=== PATIENT | female | born 1935 | race Caucasian/White ===

== ENCOUNTER 2023-04-25 08:34 | Day surgery (SDC) | payer MEDICARE, SELFPAY ==
[2023-04-25] MEDS: LIDOCAINE 2% JELLY 10 ML UR (10:18)
--- NOTE | 2023-04-25 10:40 | P.URON_ITS ---
Urology Surgery Operative Note Operative Note Procedure Date: 04/25/23 Time Out Performed: yes Pre-op Diagnosis: left UPJ obstruction and hydronephrosis; recurrent urinary infections and pain from stent Post-op Diagnosis: same as pre-op Procedures performed: #1. Cystoscopy. #2. Left stent removal. 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 It was changed in September 2022. She has been having recurrent urinary infections and pain attributable to the stent. She is desirous for stent removal. She has signed an informed consent for cystoscopy and left stent removal. Detailed description of Procedure: the patient was kept on her [facility] bed in the supine position and brought to the endoscopy suite. Her legs were frog legged and her perineum and genitalia were sterilely prepped and draped in the usual fashion. Timeout was done by all parties in the room. We all agreed upon the patient's identification and the planned procedures for this patient. A flexible cystoscope was passed per urethra and into the bladder. The urine was cloudy and visibility was poor. Once the stent was identified a flexible grasping forceps was passed. The non- encrusted stent was grasped with the grasper. The scope and stent were then removed without difficulty. She was then discharged to home. We will check a renal ultrasound in 2 months.
== END 2023-04-25 11:05 | disposition home or self-care (01) ==
PROVIDERS: PCP Family Medicine; Visit Provider Urology
PROC: (CPT 52310; principal; 2023-04-25 09:10)
DX: Z46.6 Encounter for fitting and adjustment of urinary device (principal); Z87.440 Personal history of urinary (tract) infections; Z87.442 Personal history of urinary calculi; I48.91 Unspecified atrial fibrillation; I10 Essential (primary) hypertension; K21.9 Gastro-esophageal reflux disease without esophagitis; E11.9 Type 2 diabetes mellitus without complications; R31.0 Gross hematuria; Z90.710 Acquired absence of both cervix and uterus; R30.0 Dysuria; Z79.4 Long term (current) use of insulin; Z79.899 Other long term (current) drug therapy; N39.41 Urge incontinence; Q62.11 Congenital occlusion of ureteropelvic junction; N13.30 Unspecified hydronephrosis
CPT/HCPCS: 52310

== ENCOUNTER 2023-06-11 08:00 | Outpatient (OUT) | payer MEDICARE, SELFPAY ==
--- NOTE | 2023-06-11 08:03 | US_ITS ---
The [address] [address] Patient Name: PANCHITO MALIK MRN: [id number] date: 1935 Sex: F Assigned Patient Location: US Current Patient Location: US Accession/Order Number: [id number] Exam Date: 06/11/2023 08:08 Report Date: 06/11/2023 13:21 At the request of: FELICITAS MOORE Procedure: US renal bladder EXAM: US renal bladder HISTORY: Hydronephrosis, Urinary Incontinence COMPARISON: None. TECHNIQUE: Ultrasound kidneys FINDINGS: The right kidney measures 8.8 x 4.8 x 5.7 cm contains multiple calculi, largest measuring up to 0.6 cm. There is no hydronephrosis of the right kidney. The left kidney measures 10.4 x 4.5 x 4.3 cm and contains multiple calculi, largest measuring up to 0.6 cm. There is mild left hydronephrosis. The urinary bladder appears normal. Prevoid volume was 2024.6 cc. Post void volume was 51.4 cc. US/US renal bladder IMPRESSION: Bilateral nephrolithiasis. Mild left hydronephrosis. Urinary retention. Electronically authenticated by: HARPER MARROQUIN Date: 06/11/2023 13:21
== END 2023-06-11 08:01 | disposition home or self-care (01) ==
LOC: US 08:00
PROVIDERS: PCP Family Medicine; Visit Provider Urology
DX: N13.30 Unspecified hydronephrosis (principal); R32 Unspecified urinary incontinence
CPT/HCPCS: 76770

== ENCOUNTER 2023-06-28 10:09 | Outpatient (OUT) | payer MEDICARE, SELFPAY ==
--- NOTE | 2023-06-28 | XR_ITS ---
The [address] [address] Patient Name: PANCHITO MALIK MRN: [id number] date: 1935 Sex: F Assigned Patient Location: [facility] Current Patient Location: [facility] Accession/Order Number: [id number] Exam Date: 06/28/2023 10:25 Report Date: 06/28/2023 11:12 At the request of: FELICITAS MOORE Procedure: XR abdomen 1V EXAM: XR abdomen 1V HISTORY: Kidney stone COMPARISON: None. TECHNIQUE: AP view of the abdomen. FINDINGS: Nonobstructive bowel gas pattern is noted. There is no suspicious calcification. The osseous structures are intact. XR/XR abdomen 1V IMPRESSION: Nonobstructive bowel gas pattern. Constipation. No suspicious renal calcification. Electronically authenticated by: HARPER MARROQUIN Date: 06/28/2023 11:12
== END 2023-06-28 10:10 | disposition home or self-care (01) ==
LOC: RAD 10:09
PROVIDERS: PCP Family Medicine; Visit Provider Urology
DX: N20.0 Calculus of kidney (principal); K59.00 Constipation, unspecified
CPT/HCPCS: 74018

== ENCOUNTER 2024-06-29 10:18 | Outpatient (OUT) | payer MEDICARE, SELFPAY ==
--- NOTE | 2024-06-29 10:21 | US_ITS ---
The [address] [address] Patient Name: PANCHITO MALIK MRN: [id number] date: 1935 Sex: F Assigned Patient Location: US Current Patient Location: Accession/Order Number: [id number] Exam Date: 06/29/2024 10:30 Report Date: 06/30/2024 06:33 At the request of: FELICITAS MOORE Procedure: US renal bladder EXAMINATION: US renal bladder HISTORY: Stenosis Ureteropelvic Junction, Hydronephrosis Of Left COMPARISON: Ultrasound kidneys and bladder 06/11/2023, CT abdomen pelvis 05/19/2022 TECHNIQUE: Ultrasound examination was performed of the kidneys and urinary bladder. FINDINGS: RIGHT KIDNEY: Mild cortical thinning; likely age related. Several nonobstructing stones, largest is 14 x 5 x 3 mm. Normal parenchymal echogenicity. Color Doppler demonstrates blood flow within the kidney. Kidney: 8.8 x 5.1 x 6.1 cm LEFT KIDNEY: Mild cortical thinning; likely age related. Mid body 2.6 cm mass versus developmental dromedary hump. Normal parenchymal echogenicity. Color Doppler demonstrates blood flow within the kidney. Kidney: 10.5 x 4.0 x 3.7 cm. BLADDER: No visible wall thickening, mass, or calculi. Post void residual: Patient unable to void URETERAL JETS: Not seen on right. Present on left. US/US renal bladder IMPRESSION: 1. Nonobstructing right nephrolithiasis. 2. 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 This was not appreciated on prior ultrasound and CT imaging which raises concern for a mass. CT abdomen without and with IV contrast is recommended for further evaluation. 3. Patient was unable to 4 in for evaluation of postvoid bladder volume. The right ureteral jet was also not seen, but there is no right hydronephrosis. Electronically authenticated by: SHIRLEY GOMEZ Date: 06/30/2024 06:33
--- NOTE | 2024-06-29 10:21 | XR_ITS ---
The [address] [address] Patient Name: PANCHITO MALIK MRN: [id number] date: 1935 Sex: F Assigned Patient Location: US Current Patient Location: US Accession/Order Number: [id number] Exam Date: 06/29/2024 10:35 Report Date: 07/01/2024 15:21 At the request of: FELICITAS MOORE Procedure: XR abdomen 1V EXAMINATION: XR abdomen 1V HISTORY: Stenosis Ureteropelvic Junction, Hydronephrosis Of Left Kidn COMPARISON: 06/28/2023 FINDINGS: KIDNEY/URETER - RIGHT: No visible renal or ureteral calcifications. KIDNEY/URETER - LEFT: No visible renal or ureteral calcifications. PELVIS: No visible ureteral calcifications. Any visible calcifications favor phleboliths. BOWEL: No abnormal dilation or deviation., Moderate stool BONES: No acute abnormality. Rotatory levoscoliosis with degenerative changes OTHER: Negative. No abnormal gaseous collections. XR/XR abdomen 1V IMPRESSION: Nonobstructive bowel gas pattern, moderate stool Electronically authenticated by: JOSE CRUZ HANSON Date: 07/01/2024 15:21
--- OUTSIDE RECORDS SUMMARY | 2024-06-29 10:33 | XMS_ITS | CCD ---
Author Organization [facility] Care Team Providers Care Circus Hand Name Role Phone PHYSICIAN, DEFAULT Unavailable Unavailable PHYSICIAN, DEFAULT Unavailable Unavailable HEMEYER, EARLINE Unavailable Unavailable PROVIDER, UNKNOWN Attending Unavailable PROVIDER, UNKNOWN Admitting Unavailable Trisha Osorio Primary Care Physician JO ., DR RICO Attending Unavailable HOY ., DR RICO Admitting Unavailable HOY ., DR RICO Primary Care Unavailable HOY ., DR RICO Consulting Unavailable CASEY ., GONZALES Consulting Unavailable ALONZO, АНДРЕЙ Consulting Unavailable ROLAN HDEZ Consulting Unavailable RASHEIDI, AKASH Consulting Unavailable HOY ., DR RICO Consulting Unavailable HOY ., DR RICO Attending Unavailable HOY ., DR RICO Admitting Unavailable HOY ., DR RICO Primary Care Unavailable HOY ., DR RICO Consulting Unavailable HOY ., DR RICO Attending Unavailable HOY ., DR RICO Admitting Unavailable HOY ., DR RICO Primary Care Unavailable MCGEE ., DR POLK Consulting Unavailable TIMMIS, DR POSEY Consulting Unavailable ZIEBER, DR SHIRLEY Cummings Consulting Unavailable HOY ., DR RICO Attending Unavailable HOY ., DR RICO Admitting Unavailable HOY ., DR RICO Primary Care Unavailable MCGEE ., DR POLK Attending Unavailable MCGEE ., DR POLK Admitting Unavailable MCGEE ., DR POLK Consulting Unavailable HOY ., DR RICO Primary Care Unavailable TIMJHONATHAN, DR POSEY Consulting Unavailable HEMEYER ., DR PATTEN Primary Care Unavailable YATES ., DR SALIMA Sky Consulting Unavailable YATES ., DR SALIMA Sky Attending Unavailable YATES ., DR SALIMA Sky Admitting Unavailable ZIEBER, DR SHIRLEY Cummings Consulting Unavailable GRECHNY .ANJU Consulting Unavailbridget MCKEON ., DR COOMBS Consulting Unavailable NILL ., DR GLYNN Consulting Unavailable HOY ., DR RICO Attending Unavailable HOY ., DR RICO Admitting Unavailable RAMOS, DR HARPER Cummings Consulting Unavailable HEMEYER ., DR PATTEN Primary Care Unavailable JO ., DR RICO Consulting Unavailable TERESA ., DR POLK Consulting Unavailable ZIEBGIOVANI, DR HSIRLEY Cummings Consulting Unavailable HAY ., DR COOMBS Consulting Unavailable MORALESJOHNSON RENDON Consulting Unavailable NIRU PHAM Consulting Unavailable TERESA ., DR POLK Attending Unavailable TERESA ., DR POLK Admitting Unavailable MCGEE ., DR POLK Consulting Unavailable JO ., DR RICO Primary Care Unavailable SHAUN II, TRESA Consulting Unavailable KOMA, YAZMIN Consulting Unavailable Rakan MCGEE Attending Unavailable Allergies Allergy Classification Reported Allergen(s) Allergy Type Date of Onset Reaction(s) Facility (2 sources) amiodarone; Translations: [amiodarone] Drug Allergy 2 [facility] (3 sources) ciprofloxacin; Translations: [Cipro] Drug Allergy 2 [facility] (5 sources) Amiodarone; Translations: [amiodarone] Drug Allergy Nausea (finding) [facility] (5 sources) Ciprofloxacin; Translations: [ciprofloxacin] Drug Allergy Nausea (finding) [facility] (1 source) Amiodarone Drug Allergy 1 [facility] Medications Current Medications Medication Drug Class(es) Dates Sig (Normalized) Sig (Original) acetaminophen 325 mg chewable tablet (5 sources) Start: 09-10-2022 take 1 mg by mouth every six hours acetaminophen 325 mg oral tablet, chewable mg tab(s), Oral, q6hr, Refills(s) 0 Start Date: 09/10/22 Status: Ordered cefdinir 300 mg oral capsule (2 sources) Cephalosporin Antibacterial Start: 06-21-2023 cefdinir 300 mg Cap Refills(s) 0 Start Date: 06/21/23 Status: Ordered dabigatran etexilate 150 mg oral capsule (5 sources) Start: 09-10-2022 Pradaxa 150 mg cap Oral, Refills(s) 0 Start Date: 09/10/22 Status: Ordered dilTIAZem hydrochloride 60 mg oral tablet (5 sources) Calcium Channel Herb Start: 09-10-2022 diltiazem 60 mg Tab Refills(s) 0 Start Date: 09/10/22 Status: Ordered FREESTYLE GUY 2/SENSOR/FLASH GLUC OSE MONITORING SYSTEM MISC (2 sources) Start: 06-21-2023 FREESTYLE GUY 2/SENSOR/FLASH GLUC OSE MONITORING SYSTEM MISC FREESTYLE GUY 2/SENSOR/FLASH GLUC OSE MONITORING SYSTEM MISC Start Date: 06/21/23 Status: Ordered furosemide 20 mg oral tablet (5 sources) Loop Diuretic Start: 09-10-2022 furosemide 20 mg Tab Refills(s) 0 Start Date: 09/10/22 Status: Ordered 3 ml insulin glargine 100 unt/ml pen injector (3 sources) Insulin Analog Start: 09-10-2022 Lantus Solostar Pen 100 units/mL subcutaneous solution Refills(s) 0 Start Date: 09/10/22 Status: Ordered insulin lispro 100 unt/ml injectable solution (5 sources) Insulin Analog Start: 09-10-2022 HumaLOG 100 units/mL injectable solution 5 unit(s), SubCutaneous, TIDAC, # 10 mL, Refills(s) 0 Start Date: 09/10/22 Status: Ordered linagliptin 5 mg oral tablet (5 sources) Dipeptidyl Peptidase 4 Inhibitor Start: 09-10-2022 take 1 tablet by mouth once daily Tradjenta 5 mg oral tablet 5 mg = 1 tab(s), Oral, Daily, # 30 tab(s), Refills(s) 0 Start Date: 09/10/22 Status: Ordered Milk of Magnesia (2 sources) Start: 06-21-2023 Milk of Magnesia mg, Oral, Refills(s) 0 Start Date: 06/21/23 Status: Ordered nitroglycerin 0.4 mg sublingual tablet (5 sources) Nitrate Vasodilator Start: 09-10-2022 nitroglycerin 0.4 mg sublingual Tab 0.4 mg = 1 tab(s), SubLingual, q5min, PRN for chest pain, # 100 tab(s), Refills(s) 0 Start Date: 09/10/22 Status: Ordered omeprazole 40 mg delayed release oral capsule (4 sources) Proton Pump Inhibitor Start: 09-10-2022 omeprazole 40 mg Cap-DR Refills(s) 0 Start Date: 09/10/22 Status: Ordered ondansetron 4 mg disintegrating oral tablet (2 sources) Serotonin-3 Receptor Antagonist Start: 06-21-2023 take 1 mg by mouth three times daily ondansetron 4 mg Dis Tab mg tab(s), Oral, TID, Refills(s) 0 Start Date: 06/21/23 Status: Ordered pantoprazole 40 mg delayed release oral tablet (1 source) Proton Pump Inhibitor Start: 06-26-[address] Tab 40 mg = 1 tab(s), Refills(s) 0 Start Date: 06/26/24 Status: Ordered Miralax (2 sources) Osmotic Laxative Start: 06-21-2023 take 1 g by mouth once daily MiraLax gm, Oral, Daily, Refill(s) 0 Start Date: 06/21/23 Status: Ordered spironolactone 25 mg oral tablet (3 sources) Aldosterone Antagonist Start: 09-10-2022 spironolactone 25 mg Tab Refills(s) 0 Start Date: 09/10/22 Status: Ordered tiZANidine 2 mg oral tablet (2 sources) Central alpha-2 Adrenergic Agonist Start: 06-21-2023 take 1 tablet by mouth every eight hours tiZANidine 2 mg Tab See Instructions, 1 tab(s) Oral q8hr, Refills(s) 0 Start Date: 06/21/23 Status: Ordered traMADol hydrochloride 50 mg oral tablet (2 sources) Opioid Agonist Start: 06-21-2023 take 1 mg by mouth every six hours traMADOL 50 mg Tab mg tab(s), Oral, q6hr, Refills(s) 0 Start Date: 06/21/23 Status: Ordered Completed/Discontinued Medications Medication Drug Class(es) Dates Sig (Normalized) Sig (Original) dextromethorphan hydrobromide 2 mg/ml / guaiFENesin 20 mg/ml oral solution (2 sources) Uncompetitive G-fqdfuf-M-aspartat e Receptor Antagonist, Sigma-1 Agonist Start: 06-21-2023 take 10 doses by mouth every four hours dextromethorphan- guaifenesin 20 mg-200 mg/10 mL oral liquid 10 mL, Oral, q4hr for cough, 10 EA, Refill(s) 0 Start Date: 06/21/23 Status: Ordered potassium bicarbonate 25 meq effervescent oral tablet (1 source) Start: 10-14-2023 take 1 tablet by mouth once daily Klor-Con/EF 25 mEq oral tablet, effervescent 25 mEq = 1 tab(s), Oral, Daily, # 30 tab(s), Refills(s) 1, Pharmacy: [id number], 153, cm, 06/21/23 11:04:00 EST, Height/Length Dosing, 64.2, kg, 06/21/23 11:04:00 EST, Weight Dosing Start Date: 10/14/23 Status: Ordered Problems Active Problems Problem Classification Problem Date Documented Date Episodic/Chronic Abdominal hernia (1 source) Diaphragmatic hernia without obstruction or gangrene; Translations: [DIAPH HERNIA W/O OBST/GANGRENE] Onset: 3 Episodic Abdominal pain (4 sources) Unspecified abdominal pain; Translations: [UNSPECIFIED ABDOMINAL PAIN] Onset: 2 Episodic Acute and unspecified renal failure (2 sources) Acute kidney failure, unspecified; Translations: [ACUTE KIDNEY FAILURE UNSPECIFIED] Onset: 2 Episodic Allergic reactions (2 sources) Allergy status to other antibiotic agents status; Translations: [Allergy status to other drugs, medicaments and biological substances status] Onset: 3 Episodic Bacterial infection; unspecified site (1 source) Personal history of Methicillin resistant Staphylococcus aureus infection; Translations: [PERS HX METHICILLIN RSIST STAPH INF] Onset: 3 Episodic Calculus of urinary tract (11 sources) Kidney stone; Translations: [Calculus of kidney] Onset: 2 Episodic Cardiac dysrhythmias (6 sources) Atrial fibrillation; Translations: [Unspecified atrial fibrillation] Onset: 2 09-10-2022 Chronic Cardiac dysrhythmias (1 source) Bradycardia, unspecified; Translations: [BRADYCARDIA UNSPECIFIED] Onset: 3 Episodic Congestive heart failure; nonhypertensive (1 source) Heart failure, unspecified; Translations: [HEART FAILURE UNSPECIFIED] Onset: 3 Chronic Coronary atherosclerosis and other heart disease (1 source) Atherosclerotic heart disease of [place] coronary artery without angina pectoris; Translations: [ASHD ZUNI CA W/O ANGINA PECTORIS] Onset: 2 Chronic Deficiency and other anemia (1 source) Iron deficiency anemia, unspecified; Translations: [IRON DEFICIENCY ANEMIA UNSPECIFIED] Onset: 3 Episodic Diabetes mellitus with complications (5 sources) Type 2 diabetes mellitus with diabetic chronic kidney disease; Translations: [Type 2 diabetes mellitus with hyperglycemia] Onset: 3 Chronic Diabetes mellitus without complication (6 sources) Type 2 diabetes mellitus; Translations: [Type 2 diabetes mellitus without complications] Onset: 2 09-10-2022 Chronic Diseases of white blood cells (1 source) Elevated white blood cell count, unspecified; Translations: [ELEVATED WHITE BLOOD CELL COUNT UNS] Onset: 2 Chronic E Codes: Adverse effects of medical drugs (2 sources) Adverse effect of mineralocorticoids and their antagonists, initial encounter; Translations: [Adverse effect of other nonsteroidal anti-inflammatory drugs [NSAID], initial encounter] Onset: 3 Episodic Esophageal disorders (7 sources) Gastroesophageal reflux disease; Translations: [Gastro-esophageal reflux disease without esophagitis] Onset: 2 09-10-2022 Chronic Essential hypertension (6 sources) Essential hypertension; Translations: [Essential (primary) hypertension] Onset: 2 09-10-2022 Chronic Fluid and electrolyte disorders (4 sources) Hyperkalemia; Translations: [Hypo-osmolality and hyponatremia] Onset: 3 Episodic Genitourinary congenital anomalies (5 sources) Congenital pelviureteric junction obstruction; 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] Onset: 3 Chronic Genitourinary symptoms and ill-defined conditions (7 sources) Urge incontinence; Translations: [Urge incontinence of urine] Onset: 3 Chronic Genitourinary symptoms and ill-defined conditions (9 sources) Blood in urine; Translations: [Gross hematuria] Onset: 2 Episodic Mood disorders (1 source) Mood disorders; Translations: [DEPRESSION UNSPECIFIED] Onset: 3 Osteoarthritis (1 source) Unspecified osteoarthritis, unspecified site; Translations: [UNSPECIFIED OSTEOARTHRITIS UNS SITE] Onset: 3 Chronic Other aftercare (1 source) Encounter for palliative care; Translations: [ENCOUNTER FOR PALLIATIVE CARE] Onset: 3 Episodic Other aftercare (1 source) Other [facility] (current) drug therapy; Translations: [OTH PRISON CURRENT DRUG THERAPY] Onset: 3 Episodic Other aftercare (1 source) [facility] (current) use of insulin; Translations: [TRANSFORMER MOLDER CURRENT USE OF INSULIN] Onset: 3 Episodic Other aftercare (1 source) [facility] (current) use of oral hypoglycemic drugs; Translations: [PRISON USE ORAL HYPOGLYCEMIC DX] Onset: 3 Episodic Other aftercare (1 source) moth exterminator (current) use of non-steroidal anti-inflammatories (NSAID); Translations: [PRISON USE NSAID] Onset: 3 Episodic Other aftercare (1 source) moth exterminator (current) use of anticoagulants; Translations: [TRANSFORMER MOLDER CURRNT USE ANTICOAGULANTS] Onset: 3 Episodic Other connective tissue disease (1 source) Synovial cyst of popliteal space [Mcnamara], left knee; Translations: [SYNOVIAL CYST POP SPACE LEFT KNEE] Onset: 3 Episodic Other diseases of kidney and ureters (9 sources) Hydronephrosis; Translations: [Unspecified hydronephrosis] Onset: 3 Episodic Other diseases of kidney and ureters (5 sources) Stenosis of ureter 09-10-2022 Episodic Other diseases of kidney and ureters (5 sources) Unspecified hydronephrosis; Translations: [UNSPECIFIED HYDRONEPHROSIS] Onset: 3 Episodic Other injuries and conditions due to external causes (1 source) Personal history of (healed) traumatic fracture; Translations: [PERSONAL HX HEALED TRAUMATIC FX] Onset: 3 Episodic Other nutritional; endocrine; and metabolic disorders (1 source) Hypomagnesemia; Translations: [HYPOMAGNESEMIA] Onset: 3 Chronic Other screening for suspected conditions (not mental disorders or infectious disease) (1 source) Abnormal coagulation profile; Translations: [ABNORMAL COAGULATION PROFILE] Onset: 3 Episodic Other skin disorders (1 source) Localized swelling, mass and lump, left lower limb; Translations: [LOC SWELL MASS LUMP LT LOWER LIMB] Onset: 3 Episodic Residual codes; unclassified (1 source) Localized edema; Translations: [LOCALIZED EDEMA] Onset: 3 Episodic Residual codes; unclassified (1 source) Do not resuscitate; Translations: [DO NOT RESUSCITATE] Onset: 3 Episodic Residual codes; unclassified (1 source) Acquired absence of other specified parts of digestive tract; Translations: [ACQ ABSENCE OTH PART DIGESTV TRACT] Onset: 3 Episodic Residual codes; unclassified (1 source) Acquired absence of both cervix and uterus; Translations: [ACQUIRED ABSENCE BOTH CERVIX AND UTERUS] Onset: 3 Episodic Residual codes; unclassified (1 source) Family history of diabetes mellitus; Translations: [FAMILY HISTORY OF DIABETES MELLITUS] Onset: 3 Episodic Residual codes; unclassified (1 source) Family history of ischemic heart disease and other diseases of the circulatory system; Translations: [FAM HX ISCHEMIC HRT DZ OTH DZ CIRC] Onset: 3 Episodic Residual codes; unclassified (1 source) Family history of malignant neoplasm of ovary; Translations: [FAM HX MALIGNANT NEOPLASM OVARY] Onset: 3 Episodic Residual codes; unclassified (1 source) Family history of malignant neoplasm of kidney; Translations: [FAM HX MALIGNANT NEOPLASM KIDNEY] Onset: 3 Episodic Residual codes; unclassified (1 source) Edema, unspecified; Translations: [EDEMA UNSPECIFIED] Onset: 3 Episodic Unclassified (1 source) CHRN KIDNEY DISEASE STG 3 UNSP; Translations: [CHRN KIDNEY DISEASE STG 3 UNSP] Onset: 3 Unclassified (1 source) LOW BACK PAIN, UNSPECIFIED; Translations: [LOW BACK PAIN, UNSPECIFIED] Onset: 3 Unclassified (1 source) CONTACT W/AND (SUSP) EXPOS COVID-19; Translations: [CONTACT W/AND (SUSP) EXPOS COVID-19] Onset: 2 Urinary tract infections (9 sources) Urinary tract infection, site not specified; Translations: [Urinary tract infectious disease] Onset: 3 Episodic Past or Other Problems Problem Classification Problem Date Documented Date Episodic/Chronic Nausea and vomiting (4 sources) Nausea with vomiting, unspecified; Translations: [NAUSEA WITH VOMITING UNSPECIFIED] Onset: 03-13-2022 Episodic Other diseases of kidney and ureters (1 source) Hydronephrosis with ureteropelvic junction obstruction; Translations: [HYDRONEPHR URETEROPELVIC JUNCT OBST] Onset: 05-23-2022 Episodic Results Test Name Value Interpretation Reference Range Harpreet serrano Ambulatory Visit Summaryon 1 08-26-2023 Ambulatory Visit Summary Ambulatory Visit Summary PANCHITO MALIK :1935 Visit Date:06/26/2024 Ambulatory Visit Instructions Your Diagnosis Kidney stone Stenosis of ureteropelvic junction (UPJ) Hydronephrosis of left kidney Urge incontinence Recurrent UTI Tests Performed US Bladder -- Results Pending -- US Renal -- Results Pending -- Please visit your patient portal for your results or contact your primary care physician. Your Care Team Attending Physician - TERESA BENDER, Rakan Cummings Primary Care Physician - Jo BENDER, Trisha This Is Your Medications List potassium bicarbonate (Klor-Con/EF 25 mEq oral tablet, effervescent) Contact prescribing physician if questions or concerns Misc Prescription (MakeGamesWithUsSTYLE GUY 2/SENSOR/FLASH GLUC OSE MONITORING SYSTEM MISC) acetaminophen (acetaminophen 325 mg oral tablet, chewable) cefdinir (cefdinir 300 mg Cap) dabigatran (Pradaxa 150 mg cap) dextromethorphan-guaif enesin (dextromethorphan-guai fenesin 20 mg-200 mg/10 mL oral liquid) diltiazem (diltiazem 60 mg Tab) furosemide (furosemide 20 mg Tab) insulin lispro (HumaLOG 100 units/mL injectable solution) linagliptin (Tradjenta 5 mg oral tablet) magnesium hydroxide (Milk of Magnesia) nitroglycerin (nitroglycerin 0.4 mg sublingual Tab) ondansetron (ondansetron 4 mg Dis Tab) pantoprazole (Pantoprazole [address] Tab) polyethylene glycol 3350 (MiraLax) tizanidine (tiZANidine 2 mg Tab) tramadol (traMADOL 50 mg Tab) Procedures Performed Cystoscopic insertion of ureteric stent (05/19/2022), Cardiac ablation system, Hysterectomy, Tubal ligation. Discharge Vitals Temperature (Temporal Artery) 37 ???C Heart Rate (Peripheral) 61 Respiratory Rate 16 Blood Pressure 122/64 Height 153 cm Height 60 in Weight 63.1 kg Weight 139.112 lb BMI 26.96 What to do next You Need to Schedule the Following Appointments Follow Up with TERESA BENDER, MICHAEL Gonzalez When: Comments: Pending US Results. Where: [facility] [address], [place] [address]- Medications What How Much When Instructions Unchanged potassium bicarbonate (Klor-Con/ EF 25 mEq oral tablet, effervescent) 1 Tablets By Mouth Every day Unchanged acetaminophen (acetaminophen 325 mg oral tablet, chewable) By Mouth Every 6 hours Contact prescribing physician if questions or concerns Unchanged cefdinir (cefdinir 300 mg Cap) Contact prescribing physician if questions or concerns Unchanged dabigatran (Pradaxa 150 mg cap) By Mouth Contact prescribing physician if questions or concerns Unchanged dextromethorphan-guaif enesin (dextromethorphan-guai fenesin 20 mg-200 mg/ 10 mL oral liquid) 10 Milliliter By Mouth Every 4 hours as needed for for cough Contact prescribing physician if questions or concerns Unchanged diltiazem (diltiazem 60 mg Tab) Contact prescribing physician if questions or concerns Unchanged furosemide (furosemide 20 mg Tab) Contact prescribing physician if questions or concerns Unchanged insulin lispro (HumaLOG 100 units/ mL injectable solution) 5 Units Subcutaneous Before meals Contact prescribing physician if questions or concerns Unchanged linagliptin (Tradjenta 5 mg oral tablet) 1 Tablets By Mouth Every day Contact prescribing physician if questions or concerns Unchanged magnesium hydroxide (Milk of Magnesia) By Mouth Contact prescribing physician if questions or concerns Unchanged Misc Prescription (FREESTYLE GUY 2/ SENSOR/ FLASH GLUC OSE MONITORING SYSTEM MISC) 0 Contact prescribing physician if questions or concerns Unchanged nitroglycerin (nitroglycerin 0.4 mg sublingual Tab) 1 Tablets Sublingual Every 5 minutes as needed for for chest pain Contact prescribing physician if questions or concerns Unchanged ondansetron (ondansetron 4 mg Dis Tab) By Mouth 3 times a day Contact prescribing physician if questions or concerns Unchanged pantoprazole (Pantoprazole [address] Tab) 1 Tablets Contact prescribing physician if questions or concerns Unchanged polyethylene glycol 3350 (MiraLax) By Mouth Every day Contact prescribing physician if questions or concerns Unchanged tizanidine (tiZANidine 2 mg Tab) See instructions 1 tab(s) Oral q8hr Contact prescribing physician if questions or concerns Unchanged tramadol (traMADOL 50 mg Tab) By Mouth Every 6 hours Contact prescribing physician if questions or concerns Allergies amiodarone (Nausea) Cipro (Nausea) Problems Ongoing - Any problem that you are currently receiving treatment for. Atrial fibrillation Essential hypertension Gastro-esophageal reflux Gross hematuria Hydronephrosis of left kidney Kidney stone Recurrent UTI Stenosis of ureteropelvic junction (UPJ) Type 2 diabetes mellitus Urge incontinence Patient Survey You may receive a survey via text or e-mail asking about your office visit. Please share your experience with us by completing your survey. We appreciate your feedback and thank you for choosing us for y (more content not included)... [facility] Urology Office/Clinic Noteon 06-26-2024 Urology Office/Clinic Note Urology Office/Clinic Note Chief Complaint kidney stone HPI Staff 1 year f/u with KUB Dx: kidney stone, stenosis of UPJ, hydronephrosis of left kidney, urge incontinence and recurrent UTI. Pt was recently treated for UTI by Dr. Osorio. Pt states that for a while now she has been having pain off and on the left side lower quadrant Dysuria: pt states very little burning but has had it since she was treated for UTI recently Incomplete bladder emptying: pt does voiding maneuvers such as bending forward and pushing to empty Hematuria: pt states once in a while she notices a small amount of blood on the toilet paper and in her pad Frequency: pt states that she voids at the least 1x an hour and she states that has been her normal for a very long time Urgency: yes Nocturia: 2-3x Stream: states that since treatment for her UTI she has noticed improvement with her stream Leaking: yes Post void dripping: denies Wearing pads/ Depends: wears pads and has to change 3-6x Urge incontinence: yes Stress incontinence: denies Incontinence without Sensory Awareness: denies Abdominal pain: lower left quadrant off and on Flank pain: denies Sexual complaints: denies History of Present Illness Tests reviewed: reviewed UA and [facility]. I have reviewed the previous health record information and history for this patient from . I have reviewed and verified the staff HPI to be accurate for this encounter. There have been no associated fever, chills, flank pain, or blood in the urine. Denies any urinary infections since last encounter. Review of Systems PHQ Score Initial Depression Screen Score: 2 SCORE ROS - Provider Constitutional: denies weight loss, denies hot flashes. Eyes: denies eye problems. Gastrointestinal: denies nausea, denies vomiting. Cardiovascular: denies chest pain or angina. Integumentary: no dryness Musculoskeletal: denies musculoskeletal symptoms. ENMT: denies otolaryngeal symptoms. Respiratory: no shortness of breath. Heme/Lymph: denies easy bleeding tendency, denies easy bruising tendency. Psychiatric: no confusion, no anxiety. Genitourinary: See HPI. Physical Exam Vitals & Measurements T: 37 ???C(Temporal Artery) HR: 61(Peripheral) RR: 16 BP: 122/64 HT: 60 in HT: 153 cm WT: 63.1 kg WT: 139.112 lb BMI: 26.96 General Appearance: alert , no acute distress, well nourished, well developed female. Assessment/Plan 1. Kidney stone (N20.0: Calculus of kidney) CT done 05/2022 - bilateral nonobstructing renal stones. UA from 04/09/23 showed pH 6. Could indicate uric acid stones. BACILIO 06/11/23 [facility] - bilateral renal stones measuring up to 0.6cm. Pt states that she was taking Effer-K 25mEq QD, has not taken it for a while now. Pt states that for a while now she has been having pain off and on the left side lower quadrant. Has not had any recent imaging done. Advised pt that she will need to get an ultrasound of her kidneys and bladder and a kub to determine what the next steps are. Pt voiced her understanding. Follow up pending US. All questions/concerns were discussed. Pt to call the office if she encounters any issues prior. Pt acknowledges understanding. Portions of this record may have been created with voice recognition artificial intelligence software, specifically Foursquare, SpamLion and or Topmission. Substitutions may have occurred due to the inherent limitations of voice recognition and artificial intelligence software. -Will order Renal and Bladder US and kub. 2. 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 Mcgee. S/p cysto, left stent exchange 09/27/22 S/p Cysto/L stent removal 09/14/23. 3. Hydronephrosis of left kidney (N13.30: Unspecified hydronephrosis) BACILIO 06/11/23 [facility] - mild L hydro, no R hydro. See #2. 4. Urge incontinence (N39.41: Urge incontinence) Changes pads 4-6x/day. Reports incontinence did not start until after stent was placed. Not constant. Able to make it to the toilet about half the time. Some improvement w/ leakage since performing double void maneuvers. 5. Recurrent UTI (N39.0: Urinary tract infection, site not specified) Pt has been on more than TEN rounds of abx since November including Cefdinir, Cephalexin, Cipro, Levaquin, Macrobid. Pt was recently treated for UTI by Dr. Osorio. States she experiences very little burning but has had it since she was treated for UTI recently, has small amounts of gross hematuria once in a while on the toilet paper and in her pad, and voids at the least 1x an hour and she states that has been her normal for a very long time. Pt states she takes Cefdinir 300mg QD for UTI prevention. Pt states that when she showers, she can feel something drop in her vagina. Advised pt that a pessary would help with this and this may be her bladder dropping. Advised pt that she would need to see a gyneco (more content not included)... Normal [facility] Comment on above: Result Comment: Elec tronically Signed By: Rakan MCGEE MD\.br\Date and Time Signed: 06/26/24 11:49 EST\.br\Electronically Co-Signed By: Caroline Sanchez.br\Date and Time Co-Signed: 06/26/24 11:46 EST CULTURE URINEon 12-11-2022 CULTURE URINE Isolate 1 Klebsiella pneumoniae >100,000 cfu/mL of Isolate 2 Pseudomonas aeruginosa >100,000 cfu/mL of ORGANISM 1 Klebsiella pneumoniae ANTIBIOTIC M.I.C RX STATUS Ampicillin 16 R F Ampicillin/Sulbactam 4 S F Piperacillin/Tazobacta m 8 S F Cefazolin <=4 S F Ceftazidime <=1 S F Ceftriaxone <=1 S F Ertapenem <=0.5 S F Imipenem <=0.25 S F Amikacin <=2 S F Gentamicin <=1 S F Tobramycin <=1 S F Ciprofloxacin <=0.25 S F Levofloxacin 1 S F Nitrofurantoin 128 R F Trimethoprim/Sulfameth oxazole <=20 S F ORGANISM 2 Pseudomonas aeruginosa ANTIBIOTIC M.I.C RX STATUS Piperacillin/Tazobacta m 8 S F Ceftazidime 4 S F Imipenem 1 S F Amikacin <=2 S F Gentamicin <=1 S F Tobramycin <=1 S F Ciprofloxacin <=0.25 S F Levofloxacin 0.25 S F Normal [facility] Comment on above: Performed By: #### C BC #### [facility] [address] [place] [address] Dr. Vanessa Go CBC AUTO DIFFon 12-10-2022 BASO # 0.0 103/ul Normal 0.0-0.1 [facility] Comment on above: Performed By: #### C BC #### [facility] [address] [place] [address] Dr. Vanessa Go Basophils/100 WBC (Bld) 0.1 % Critically low 0.2-2.0 [facility] Comment on above: Performed By: #### C BC #### [facility] [address] [place] [address] Dr. Vanessa Go EO # 0.1 103/ul Normal 0.0-0.7 [facility] Comment on above: Performed By: #### C BC #### [facility] [address] [place] [address] Dr. Vanessa Go Eosinophils/100 WBC (Bld) 1.8 % Normal 0.9-7.0 [facility] Comment on above: Performed By: #### C BC #### [facility] [address] [place] [address] Dr. Vanessa Go Erythrocyte distribution width (RBC) [Ratio] 14.1 % Normal 11.0-15.0 [facility] Comment on above: Performed By: #### C BC #### [facility] [address] [place] [address] Dr. Vanessa Go Hematocrit (Bld) [Volume fraction] 26.6 % Critically low 36.0-48.0 [facility] Comment on above: Performed By: #### C BC #### [facility] [address] [address] [address] Vanessa Go Hemoglobin (Bld) [Mass/Vol] 8.5 g/dL Critically low 12.0-16.0 [facility] Comment on above: Performed By: #### C BC #### [facility] [address] [address] [address] Vanessa Go IG # 0.03 10e3/ul Normal 0.00-0.03 [facility] Comment on above: Performed By: #### C BC #### [facility] [address] [place] [address] Dr. Vanessa Go IG % 0.4 % Normal 0.0-0.5 [facility] Comment on above: Performed By: #### C BC #### [facility] [address] [place] [address] Dr. Vanessa Go LYMPH # 2.1 103/ul Normal 1.2-3.8 [facility] Comment on above: Performed By: #### C BC #### [facility] [address] [place] [address] Dr. Vanessa Go Lymphocytes/100 WBC (Bld) 29.5 % Normal 20.5-60.0 [facility] Comment on above: Performed By: #### C BC #### [facility] [address] [place] [address] Dr. Vanessa Go MANUAL DIFF REQ NO Normal [facility] Comment on above: Performed By: #### C BC #### [facility] [address] [place] [address] Dr. Vanessa Go MCH (RBC) [Entitic mass] 25.7 pg Critically low 26.7-34.0 [facility] Comment on above: Performed By: #### C BC #### [facility] [address] [place] [address] Dr. Vanessa Go MCHC (RBC) [Mass/Vol] 32.0 g/dL Normal 29.9-35.2 [facility] Comment on above: Performed By: #### C BC #### [facility] [address] [address] [address] Vanessa Go MCV (RBC) [Entitic vol] 80.4 fL Critically low 81.0-99.0 [facility] Comment on above: Performed By: #### C BC #### [facility] [address] [address] [address] Vanessa Go MONO # 0.6 103/ul Normal 0.3-0.8 [facility] Comment on above: Performed By: #### C BC #### [facility] [address] [address] [address] Vanessa Go Monocytes/100 WBC (Bld) 8.6 % Normal 1.7-12.0 [facility] Comment on above: Performed By: #### C BC #### [facility] [address] [place] [address] Dr. Vanessa Go NEUT # 4.3 103/ul Normal 1.4-6.5 [facility] Comment on above: Performed By: #### C BC #### [facility] [address] [place] [address] Dr. Vanessa Go Neutrophils/100 WBC (Bld) 59.6 % Normal 43.0-75.0 [facility] Comment on above: Performed By: #### C BC #### [facility] [address] [place] [address] Dr. Vanessa Go Platelet mean volume (Bld) [Entitic vol] 9.1 fL Critically low 9.5-13.5 [facility] Comment on above: Performed By: #### C BC #### [facility] [address] [place] [address] Dr. Vanessa Go PLT 236 103/ul Normal 150-450 [facility] Comment on above: Performed By: #### C BC #### [facility] [address] [address] [address] Vanessa Go RBC 3.31 106/ul Critically low 4.20-5.40 [facility] Comment on above: Performed By: #### C BC #### [facility] [address] [place] [address] Dr. Vanessa Go WBC 7.2 103/ul Normal 4.0-11.0 [facility] Comment on above: Performed By: #### C BC #### [facility] [address] [place] [address] Dr. Vanessa Go MAGNESIUMon 12-10-2022 Magnesium [Mass/Vol] 1.5 mg/dL Critically low 1.8-2.4 [facility] Comment on above: Performed By: #### M G, BMP #### [facility] [address] [place] [address] Dr. Vanessa Go PROF CHEM 8 (BAS METB)on Anion gap [Moles/Vol] 14.3 mmol/L Normal [facility] Comment on above: Performed By: #### M G, BMP #### [facility] [address] [place] [address] Dr. Vanessa Go Calcium [Mass/Vol] 8.6 mg/dL Normal 8.5-10.1 [facility] Comment on above: Performed By: #### M G, BMP #### [facility] [address] [place] [address] Dr. Vanessa Go Chloride [Moles/Vol] 100 mmol/L Normal 98-107 [facility] Comment on above: Performed By: #### M G, BMP #### [facility] [address] [place] [address] Dr. Vanessa Go CO2 [Moles/Vol] 21.4 mmol/L Normal 21.0-32.0 [facility] Comment on above: Performed By: #### M G, BMP #### [facility] [address] [place] [address] Dr. Vanessa Go Creatinine [Mass/Vol] 1.09 mg/dL Critically high 0.55-1.02 [facility] Comment on above: Performed By: #### M G, BMP #### [facility] [address] [place] [address] Dr. Vanessa Go EGFR-AF CONGOLESE 57 mL/min/1.73m2 Critically low >=60 [facility] Comment on above: Performed By: #### M G, BMP #### [facility] [address] [address] [address] Vanessa Go EGFR-NON AF CONGOLESE 47 mL/min/1.73m2 Critically low >=60 [facility] Comment on above: Performed By: #### M G, BMP #### [facility] [address] [place] [address] Dr. Vanessa Go Glucose [Mass/Vol] 84 mg/dL Normal 74-106 [facility] Comment on above: Performed By: #### M G, BMP #### [facility] [address] [place] [address] Dr. Vanessa Go Potassium [Moles/Vol] 4.7 mmol/L Normal 3.5-5.1 [facility] Comment on above: Performed By: #### M G, BMP #### [facility] [address] [place] [address] Dr. Vanessa Go Sodium [Moles/Vol] 131 mmol/L Critically low 136-145 [facility] Comment on above: Performed By: #### M G, BMP #### [facility] [address] [place] [address] Dr. Vanessa Go Urea nitrogen [Mass/Vol] 25.0 mg/dL Critically high 7.0-18.0 [facility] Comment on above: Performed By: #### Charbel Vallejo, BMP #### [facility] [address] [place] [address] Dr. Vanessa Go Urea nitrogen/Creatinine [Mass ratio] 22.9 mg/mg Normal [facility] Comment on above: Performed By: #### M G, BMP #### [facility] [address] [place] [address] Dr. Vanessa Go CBC AUTO DIFFon 12-09-2022 BASO # 0.0 103/ul Normal 0.0-0.1 [facility] Comment on above: Performed By: #### C BC #### [facility] [address] [place] [address] Dr. Vanessa Go Basophils/100 WBC (Bld) 0.3 % Normal 0.2-2.0 [facility] Comment on above: Performed By: #### C BC #### [facility] [address] [place] [address] Dr. Vanessa Go EO # 0.1 103/ul Normal 0.0-0.7 [facility] Comment on above: Performed By: #### C BC #### [facility] [address] [place] [address] Dr. Vanessa Go Eosinophils/100 WBC (Bld) 1.9 % Normal 0.9-7.0 [facility] Comment on above: Performed By: #### C BC #### [facility] [address] [place] [address] Dr. Vanessa Go Erythrocyte distribution width (RBC) [Ratio] 14.4 % Normal 11.0-15.0 [facility] Comment on above: Performed By: #### C BC #### [facility] [address] [place] [address] Dr. Vanessa Go Hematocrit (Bld) [Volume fraction] 28.1 % Critically low 36.0-48.0 [facility] Comment on above: Performed By: #### C BC #### [facility] [address] [place] [address] Dr. Vanessa Go Hemoglobin (Bld) [Mass/Vol] 8.9 g/dL Critically low 12.0-16.0 [facility] Comment on above: Performed By: #### C BC #### [facility] [address] [place] [address] Dr. Vanessa Go IG # 0.03 10e3/ul Normal 0.00-0.03 [facility] Comment on above: Performed By: #### C BC #### [facility] [address] [place] [address] Dr. Vanessa Go IG % 0.4 % Normal 0.0-0.5 [facility] Comment on above: Performed By: #### C BC #### [facility] [address] [place] [address] Dr. Vanessa Go LYMPH # 1.9 103/ul Normal 1.2-3.8 [facility] Comment on above: Performed By: #### C BC #### [facility] [address] [place] [address] Dr. Vanessa Go Lymphocytes/100 WBC (Bld) 26.1 % Normal 20.5-60.0 [facility] Comment on above: Performed By: #### C BC #### [facility] [address] [place] [address] Dr. Vanessa Go MANUAL DIFF REQ NO Normal [facility] Comment on above: Performed By: #### C BC #### [facility] [address] [place] [address] Dr. Vanessa Go MCH (RBC) [Entitic mass] 25.5 pg Critically low 26.7-34.0 [facility] Comment on above: Performed By: #### C BC #### [facility] [address] [place] [address] Dr. Vanessa Go MCHC (RBC) [Mass/Vol] 31.7 g/dL Normal 29.9-35.2 [facility] Comment on above: Performed By: #### C BC #### [facility] [address] [place] [address] Dr. Vanessa Go MCV (RBC) [Entitic vol] 80.5 fL Critically low 81.0-99.0 [facility] Comment on above: Performed By: #### C BC #### [facility] [address] [place] [address] Dr. Vanessa Go MONO # 0.5 103/ul Normal 0.3-0.8 [facility] Comment on above: Performed By: #### C BC #### [facility] [address] [place] [address] Dr. Vanessa Go Monocytes/100 WBC (Bld) 7.2 % Normal 1.7-12.0 [facility] Comment on above: Performed By: #### C BC #### [facility] [address] [place] [address] Dr. Vanessa Go NEUT # 4.7 103/ul Normal 1.4-6.5 [facility] Comment on above: Performed By: #### C BC #### [facility] [address] [address] [address] Vanessa Go Neutrophils/100 WBC (Bld) 64.1 % Normal 43.0-75.0 [facility] Comment on above: Performed By: #### C BC #### [facility] [address] [address] [address] Vanessa Go Platelet mean volume (Bld) [Entitic vol] 8.9 fL Critically low 9.5-13.5 [facility] Comment on above: Performed By: #### C BC #### [facility] [address] [place] [address] Dr. Vanessa Go PLT 253 103/ul Normal 150-450 [facility] Comment on above: Performed By: #### C BC #### [facility] [address] [place] [address] Dr. Vanessa Go RBC 3.49 106/ul Critically low 4.20-5.40 [facility] Comment on above: Performed By: #### C BC #### [facility] [address] [place] [address] Dr. Vanessa Go WBC 7.3 103/ul Normal 4.0-11.0 [facility] Comment on above: Performed By: #### C BC #### [facility] [address] [place] [address] Dr. Vanessa Go MAGNESIUMon 12-09-2022 Magnesium [Mass/Vol] 1.7 mg/dL Critically low 1.8-2.4 [facility] Comment on above: Performed By: #### M G, BMP #### [facility] [address] [place] [address] Dr. Vanessa Go POINT OF CARE GLUCOSEon 11-12 Glucose [Mass/Vol] 127 mg/dL Critically high 74-106 [facility] Comment on above: Performed By: #### H STROPN #### [facility] [address] [place] [address] Dr. Vanessa Go Glucose [Mass/Vol] 120 mg/dL Critically high 74-106 [facility] Comment on above: Performed By: #### C BC #### [facility] [address] [place] [address] Dr. Vanessa Go PROF CHEM 8 (BAS METB)on Anion gap [Moles/Vol] 13.3 mmol/L Normal [facility] Comment on above: Performed By: #### M G, BMP #### [facility] [address] [place] [address] Dr. Vanessa Go Calcium [Mass/Vol] 8.7 mg/dL Normal 8.5-10.1 [facility] Comment on above: Performed By: #### M G, BMP #### [facility] [address] [place] [address] Dr. Vanessa Go Chloride [Moles/Vol] 98 mmol/L Normal 98-107 [facility] Comment on above: Performed By: #### M G, BMP #### [facility] [address] [place] [address] Dr. Vanessa Go CO2 [Moles/Vol] 19.6 mmol/L Critically low 21.0-32.0 [facility] Comment on above: Performed By: #### M G, BMP #### [facility] [address] [place] [address] Dr. Vanessa Go Creatinine [Mass/Vol] 1.47 mg/dL Critically high 0.55-1.02 [facility] Comment on above: Performed By: #### M G, BMP #### [facility] [address] [place] [address] Dr. Vanessa Go EGFR-AF CONGOLESE 41 mL/min/1.73m2 Critically low >=60 [facility] Comment on above: Performed By: #### M G, BMP #### [facility] [address] [place] [address] Dr. Vanessa Go EGFR-NON AF CONGOLESE 34 mL/min/1.73m2 Critically low >=60 [facility] Comment on above: Performed By: #### M G, BMP #### [facility] [address] [place] [address] Dr. Vanessa Go Glucose [Mass/Vol] 89 mg/dL Normal 74-106 [facility] Comment on above: Performed By: #### M G, BMP #### [facility] [address] [place] [address] Dr. Vanessa Go Potassium [Moles/Vol] 4.9 mmol/L Normal 3.5-5.1 [facility] Comment on above: Performed By: #### M G, BMP #### [facility] [address] [place] [address] Dr. Vanessa Go Sodium [Moles/Vol] 126 mmol/L Critically low 136-145 [facility] Comment on above: Performed By: #### M G, BMP #### [facility] [address] [place] [address] Dr. Vanessa Go Urea nitrogen [Mass/Vol] 31.0 mg/dL Critically high 7.0-18.0 [facility] Comment on above: Performed By: #### Charbel Vallejo, BMP #### [facility] [address] [place] [address] Dr. Vanessa Go Urea nitrogen/Creatinine [Mass ratio] 21.1 mg/mg Normal [facility] Comment on above: Performed By: #### M Genevieve, BMP #### [facility] [address] [place] [address] Dr. Vanessa Go CBC AUTO DIFFon 12-08-2022 BASO # 0.0 103/ul Normal 0.0-0.1 [facility] Comment on above: Performed By: #### C BC #### [facility] [address] [place] [address] Dr. Vanessa Go Basophils/100 WBC (Bld) 0.2 % Normal 0.2-2.0 [facility] Comment on above: Performed By: #### C BC #### [facility] [address] [place] [address] Dr. Vanessa Go EO # 0.1 103/ul Normal 0.0-0.7 [facility] Comment on above: Performed By: #### C BC #### [facility] [address] [place] [address] Dr. Vanessa Go Eosinophils/100 WBC (Bld) 0.9 % Normal 0.9-7.0 [facility] Comment on above: Performed By: #### C BC #### [facility] [address] [place] [address] Dr. Vanessa Go Erythrocyte distribution width (RBC) [Ratio] 14.2 % Normal 11.0-15.0 [facility] Comment on above: Performed By: #### C BC #### [facility] [address] [place] [address] Dr. Vanessa Go Hematocrit (Bld) [Volume fraction] 26.5 % Critically low 36.0-48.0 [facility] Comment on above: Performed By: #### C BC #### [facility] [address] [place] [address] Dr. Vanessa Go Hemoglobin (Bld) [Mass/Vol] 8.5 g/dL Critically low 12.0-16.0 [facility] Comment on above: Performed By: #### C BC #### [facility] [address] [place] [address] Dr. Vanessa Go IG # 0.03 10e3/ul Normal 0.00-0.03 [facility] Comment on above: Performed By: #### C BC #### [facility] [address] [place] [address] Dr. Vanessa Go IG % 0.3 % Normal 0.0-0.5 [facility] Comment on above: Performed By: #### C BC #### [facility] [address] [place] [address] Dr. Vanessa Go LYMPH # 2.1 103/ul Normal 1.2-3.8 [facility] Comment on above: Performed By: #### C BC #### [facility] [address] [place] [address] Dr. Vanessa Go Lymphocytes/100 WBC (Bld) 23.3 % Normal 20.5-60.0 [facility] Comment on above: Performed By: #### C BC #### [facility] [address] [address] [address] Vanessa Go MANUAL DIFF REQ NO Normal [facility] Comment on above: Performed By: #### C BC #### [facility] [address] [address] [address] Vanessa Go MCH (RBC) [Entitic mass] 25.8 pg Critically low 26.7-34.0 [facility] Comment on above: Performed By: #### C BC #### [facility] [address] [address] [address] Vanessa Go MCHC (RBC) [Mass/Vol] 32.1 g/dL Normal 29.9-35.2 [facility] Comment on above: Performed By: #### C BC #### [facility] [address] [place] [address] Dr. Vanessa Go MCV (RBC) [Entitic vol] 80.3 fL Critically low 81.0-99.0 [facility] Comment on above: Performed By: #### C BC #### [facility] [address] [place] [address] Dr. Vanessa Go MONO # 0.6 103/ul Normal 0.3-0.8 [facility] Comment on above: Performed By: #### C BC #### [facility] [address] [place] [address] Dr. Vanessa Go Monocytes/100 WBC (Bld) 6.7 % Normal 1.7-12.0 [facility] Comment on above: Performed By: #### C BC #### [facility] [address] [place] [address] Dr. Vanessa Go NEUT # 6.1 103/ul Normal 1.4-6.5 [facility] Comment on above: Performed By: #### C BC #### [facility] [address] [place] [address] Dr. Vanessa Go Neutrophils/100 WBC (Bld) 68.6 % Normal 43.0-75.0 [facility] Comment on above: Performed By: #### C BC #### [facility] [address] [address] [address] Vanessa Go Platelet mean volume (Bld) [Entitic vol] 8.5 fL Critically low 9.5-13.5 [facility] Comment on above: Performed By: #### C BC #### [facility] [address] [place] [address] Dr. Vanessa Go PLT 263 103/ul Normal 150-450 [facility] Comment on above: Performed By: #### C BC #### [facility] [address] [place] [address] Dr. Vanessa Go RBC 3.30 106/ul Critically low 4.20-5.40 [facility] Comment on above: Performed By: #### C BC #### [facility] [address] [place] [address] Dr. Vanessa Go WBC 8.9 103/ul Normal 4.0-11.0 [facility] Comment on above: Performed By: #### C BC #### [facility] [address] [place] [address] Dr. Vanessa Go CREATININE URINEon 3 URINE CREAT 64.14 mg/dL Normal 20.00-300.00 [facility] Comment on above: Performed By: #### C BC #### [facility] [address] [place] [address] Dr. Vanessa Go ER URINE PROFILEon 3 Bilirubin Ql (U) SMALL Abnormal NEGATIVE The [facility] Comment on above: Performed By: #### C BC #### [facility] [address] [place] [address] Dr. Vanessa Go Clarity (U) CLEAR Normal CLEAR [facility] Comment on above: Performed By: #### C BC #### [facility] [address] [place] [address] Dr. Vanessa Go Color (U) DK. ORANGE Abnormal YELLOW [facility] Comment on above: Performed By: #### C BC #### [facility] [address] [place] [address] Dr. Vanessa Go ERUAHD A micrscopic examination will be performed if indicated. Normal [facility] Comment on above: Performed By: #### C BC #### [facility] [address] [address] [address] Vanessa Go Glucose Ql (U) Negative Normal NEGATIVE [facility] Comment on above: Performed By: #### C BC #### [facility] [address] [address] [address] Vanessa Go Hemoglobin Ql (U) LARGE Abnormal NEGATIVE [facility] Comment on above: Performed By: #### C BC #### [facility] [address] [address] [address] Vanessa Go Ketones Ql (U) TRACE Abnormal NEGATIVE [facility] Comment on above: Performed By: #### C BC #### [facility] [address] [place] [address] Dr. Vanessa Go LEUKOCYTES SMALL Abnormal NEGATIVE [facility] Comment on above: Performed By: #### C BC #### [facility] [address] [place] [address] Dr. Vanessa Go Nitrite Ql (U) Positive Abnormal NEGATIVE [facility] Comment on above: Performed By: #### C BC #### [facility] [address] [place] [address] Dr. Vanessa Go pH (U) 6.5 [pH] Normal 5-9 [facility] Comment on above: Performed By: #### C BC #### [facility] [address] [address] [address] Vanessa Go Protein (U) [Mass/Vol] 300 mg/dL Abnormal NEGATIVE/ TRACE [facility] Comment on above: Performed By: #### C BC #### [facility] [address] [place] [address] Dr. Vanessa Go SPEC GRAVITY 1.020 Normal 1.005-<=1.025 [facility] Comment on above: Performed By: #### C BC #### [facility] [address] [place] [address] Dr. Vanessa Go UR MICRO IND INDICATED Normal [facility] Comment on above: Performed By: #### C BC #### [facility] [address] [address] [address] Vanessa Go Urobilinogen Qn (U) 1.0 {Vin'U}/dL Normal 0.2 - 1. 0 [facility] Comment on above: Performed By: #### C BC #### [facility] [address] [address] [address] Vanessa Go MAGNESIUMon 12-08-2022 Magnesium [Mass/Vol] 2.0 mg/dL Normal 1.8-2.4 [facility] Comment on above: Performed By: #### C BC #### [facility] [address] [address] [address] Vanessa Go POINT OF CARE GLUCOSEon 11-11 Glucose [Mass/Vol] 144 mg/dL Critically high 74-106 [facility] Comment on above: Performed By: #### M G, BMP #### [facility] [address] [place] [address] Dr. Vanessa Go Glucose [Mass/Vol] 128 mg/dL Critically high 74-106 [facility] Comment on above: Performed By: #### C BC #### [facility] [address] [address] [address] Vanessa Go Glucose [Mass/Vol] 156 mg/dL Critically high 74-106 [facility] Comment on above: Performed By: #### M G, BMP #### [facility] [address] [address] [address] Vanessa Go Glucose [Mass/Vol] 106 mg/dL Normal 74-106 [facility] Comment on above: Performed By: #### M G, BMP #### [facility] [address] [place] [address] Dr. Vanessa Go PROF CHEM 8 (BAS METB)on Anion gap [Moles/Vol] 13.1 mmol/L Normal [facility] Comment on above: Performed By: #### C BC #### [facility] [address] [place] [address] Dr. Vanessa Go Calcium [Mass/Vol] 8.7 mg/dL Normal 8.5-10.1 [facility] Comment on above: Performed By: #### C BC #### [facility] [address] [address] [address] Vanessa Go Chloride [Moles/Vol] 95 mmol/L Critically low 98-107 [facility] Comment on above: Performed By: #### C BC #### [facility] [address] [address] [address] Vanessa Go CO2 [Moles/Vol] 21.3 mmol/L Normal 21.0-32.0 [facility] Comment on above: Performed By: #### C BC #### [facility] [address] [address] [address] Vanessa Go Creatinine [Mass/Vol] 2.16 mg/dL Critically high 0.55-1.02 [facility] Comment on above: Performed By: #### C BC #### [facility] [address] [place] [address] Dr. Vanessa Go EGFR-AF CONGOLESE 26 mL/min/1.73m2 Critically low >=60 [facility] Comment on above: Performed By: #### C BC #### [facility] [address] [place] [address] Dr. Vanessa Go EGFR-NON AF CONGOLESE 22 mL/min/1.73m2 Critically low >=60 [facility] Comment on above: Performed By: #### C BC #### [facility] [address] [address] [address] Vanessa Go Glucose [Mass/Vol] 106 mg/dL Normal 74-106 [facility] Comment on above: Performed By: #### C BC #### [facility] [address] [address] [address] Vanessa Go Potassium [Moles/Vol] 5.4 mmol/L Critically high 3.5-5.1 [facility] Comment on above: Performed By: #### C BC #### [facility] [address] [place] [address] Dr. Vanessa Go Sodium [Moles/Vol] 124 mmol/L Critically low 136-145 Th e [facility] Comment on above: Performed By: #### C BC #### [facility] [address] [place] [address] Dr. Vanessa Go Urea nitrogen [Mass/Vol] 44.0 mg/dL Critically high 7.0-18.0 [facility] Comment on above: Performed By: #### C BC #### [facility] [address] [place] [address] Dr. Vanessa Go Urea nitrogen/Creatinine [Mass ratio] 20.4 mg/mg Normal [facility] Comment on above: Performed By: #### C BC #### [facility] [address] [place] [address] Dr. Vanessa Go SODIUM RANDOM URINEon 2022 Sodium (U) [Moles/Vol] 65 mmol/L Normal [facility] Comment on above: Performed By: #### N AU #### [facility] [address] [place] [address] Dr. Vanessa Go Sodium (U) [Moles/Vol] 66 mmol/L Normal [facility] Comment on above: Performed By: #### M G, BMP #### [facility] [address] [place] [address] Dr. Vanessa Go URINE MICROSCOPIC ONLYon BACTERIA SMALL Abnormal NONE SEEN [facility] Comment on above: Performed By: #### C BC #### [facility] [address] [place] [address] Dr. Vanessa Go Bacteria identified Cx Nom (U) INDICATED Normal [facility] Comment on above: Performed By: #### C BC #### [facility] [address] [place] [address] Dr. Vanessa Go CAST SEEN Abnormal NONE SEEN [facility] Comment on above: Performed By: #### C BC #### [facility] [address] [place] [address] Dr. Vanessa Go Crystals LM Nom (Urine sed) NONE SEEN Normal NONE SEEN [facility] Comment on above: Performed By: #### C BC #### [facility] [address] [place] [address] Dr. Vanessa Go Epithelial cells LM Ql (Urine sed) MODERATE Abnormal NONE SEEN /RARE [facility] Comment on above: Performed By: #### C BC #### [facility] [address] [place] [address] Dr. Vanessa Go MUCOUS TRACE Abnormal NONE SEEN [facility] Comment on above: Performed By: #### C BC #### [facility] [address] [place] [address] Dr. Vanessa Go RBC 20-50 Abnormal 0-2 [facility] Comment on above: Performed By: #### C BC #### [facility] [address] [place] [address] Dr. Vanessa Go WBC 20-50 Abnormal NONE SEEN [facility] Comment on above: Performed By: #### C BC #### [facility] [address] [place] [address] Dr. Vanessa Go US KIDNEYS BLADDERon 023 US KIDNEYS BLADDER EXAM: US KIDNEYS BLADDER HISTORY: Acute renal failure syndrome COMPARISON: Renal ultrasound examination dated 05/21/2022. TECHNIQUE: Ultrasound examination of the kidneys and urinary bladder was performed using Color Doppler. FINDINGS: The right kidney is normal in cortical echogenicity and corticomedullary differentiation without cortical thinning. The right kidney is normal in size measuring 8.8 cm in length. There is no focal renal mass. There is no hydronephrosis. There is a 2 mm nonobstructive right renal calculus. The left kidney is normal in cortical echogenicity and corticomedullary differentiation without cortical thinning. The left kidney is normal in size measuring 9.4 cm in length. There is no focal renal mass or calcification. There is no hydronephrosis. The urinary bladder appears within normal limits. The ureteral jets were not visualized due to artifact. IMPRESSION: 1. No hydronephrosis. 2. Nonobstructive right renal calculus. 3. The ureteral jets were not visualized due to artifact. Electronically authenticated by: Jorge Luis ALONZO Date: 2022-12-07 22:44 Normal [facility] CBC AUTO DIFFon 12-07-2022 BASO # 0.0 103/ul Normal 0.0-0.1 [facility] Comment on above: Performed By: #### C BC #### [facility] [address] [address] [address] Vanessa Go Basophils/100 WBC (Bld) 0.1 % Critically low 0.2-2.0 [facility] Comment on above: Performed By: #### C BC #### [facility] [address] [address] [address] Vanessa Go EO # 0.1 103/ul Normal 0.0-0.7 [facility] Comment on above: Performed By: #### C BC #### [facility] [address] [address] [address] Vanessa Go Eosinophils/100 WBC (Bld) 0.8 % Critically low 0.9-7.0 [facility] Comment on above: Performed By: #### C BC #### [facility] [address] [address] [address] Vanessa Go Erythrocyte distribution width (RBC) [Ratio] 14.1 % Normal 11.0-15.0 [facility] Comment on above: Performed By: #### C BC #### [facility] [address] [address] [address] Vanessa Go Hematocrit (Bld) [Volume fraction] 29.9 % Critically low 36.0-48.0 [facility] Comment on above: Performed By: #### C BC #### [facility] [address] [address] [address] Vanessa Go Hemoglobin (Bld) [Mass/Vol] 9.8 g/dL Critically low 12.0-16.0 [facility] Comment on above: Performed By: #### C BC #### [facility] [address] [address] [address] Vanessa Go IG # 0.04 10e3/ul Critically high 0.00-0.03 [facility] Comment on above: Performed By: #### C BC #### [facility] [address] [address] [address] Vanessa Go IG % 0.4 % Normal 0.0-0.5 [facility] Comment on above: Performed By: #### C BC #### [facility] [address] [place] [address] Dr. Vanessa Go LYMPH # 2.6 103/ul Normal 1.2-3.8 [facility] Comment on above: Performed By: #### C BC #### [facility] [address] [place] [address] Dr. Vanessa Go Lymphocytes/100 WBC (Bld) 24.9 % Normal 20.5-60.0 [facility] Comment on above: Performed By: #### C BC #### [facility] [address] [place] [address] Dr. Vanessa Go MANUAL DIFF REQ NO Normal [facility] Comment on above: Performed By: #### C BC #### [facility] [address] [place] [address] Dr. Vanessa Go MCH (RBC) [Entitic mass] 26.0 pg Critically low 26.7-34.0 [facility] Comment on above: Performed By: #### C BC #### [facility] [address] [place] [address] Dr. Vanessa Go MCHC (RBC) [Mass/Vol] 32.8 g/dL Normal 29.9-35.2 [facility] Comment on above: Performed By: #### C BC #### [facility] [address] [place] [address] Dr. Vanessa Go MCV (RBC) [Entitic vol] 79.3 fL Critically low 81.0-99.0 [facility] Comment on above: Performed By: #### C BC #### [facility] [address] [place] [address] Dr. Vanessa Go MONO # 0.7 103/ul Normal 0.3-0.8 [facility] Comment on above: Performed By: #### C BC #### [facility] [address] [place] [address] Dr. Vanessa Go Monocytes/100 WBC (Bld) 6.6 % Normal 1.7-12.0 [facility] Comment on above: Performed By: #### C BC #### [facility] [address] [address] [address] Vanessa Go NEUT # 7.1 103/ul Critically high 1.4-6.5 [facility] Comment on above: Performed By: #### C BC #### [facility] [address] [address] [address] Vanessa Go Neutrophils/100 WBC (Bld) 67.2 % Normal 43.0-75.0 [facility] Comment on above: Performed By: #### C BC #### [facility] [address] [place] [address] Dr. Vanessa Go Platelet mean volume (Bld) [Entitic vol] 8.7 fL Critically low 9.5-13.5 [facility] Comment on above: Performed By: #### C BC #### [facility] [address] [place] [address] Dr. Vanessa Go PLT 338 103/ul Normal 150-450 [facility] Comment on above: Performed By: #### C BC #### [facility] [address] [place] [address] Dr. Vanessa Go RBC 3.77 106/ul Critically low 4.20-5.40 [facility] Comment on above: Performed By: #### C BC #### [facility] [address] [place] [address] Dr. Vanessa Go WBC 10.6 103/ul Normal 4.0-11.0 [facility] Comment on above: Performed By: #### C BC #### [facility] [address] [place] [address] Dr. Vanessa Go POTASSIUMon 12-07-2022 Potassium [Moles/Vol] 5.2 mmol/L Critically high 3.5-5.1 [facility] Comment on above: Performed By: #### H STROPN #### [facility] [address] [place] [address] Dr. Vanessa Go PROF 14(COMP METB)on 023 Albumin [Mass/Vol] 3.4 g/dL Normal 3.4-5.0 [facility] Comment on above: Performed By: #### H STROPN #### [facility] [address] [address] [address] Vanessa Go Albumin/Globulin [Mass ratio] 0.8 {ratio} Normal [facility] Comment on above: Performed By: #### H STROPN #### [facility] [address] [address] [address] Vanessa Go ALP [Catalytic activity/Vol] 122 U/L Critically high 46-116 [facility] Comment on above: Performed By: #### H STROPN #### [facility] [address] [address] [address] Vanessa Go ALT [Catalytic activity/Vol] 17 U/L Normal 14-59 [facility] Comment on above: Performed By: #### H STROPN #### [facility] [address] [address] [address] Vanessa Go Anion gap [Moles/Vol] 14.8 mmol/L Normal [facility] Comment on above: Performed By: #### H STROPN #### [facility] [address] [address] [address] Vanessa Go AST [Catalytic activity/Vol] 15 U/L Normal 15-37 [facility] Comment on above: Performed By: #### H STROPN #### [facility] [address] [address] [address] Vanessa Go Bilirubin [Mass/Vol] 0.5 mg/dL Normal 0.2-1.0 [facility] Comment on above: Performed By: #### H STROPN #### [facility] [address] [address] [address] Vanessa Go Calcium [Mass/Vol] 9.2 mg/dL Normal 8.5-10.1 [facility] Comment on above: Performed By: #### H STROPN #### [facility] [address] [address] [address] Vanessa Go Chloride [Moles/Vol] 93 mmol/L Critically low 98-107 [facility] Comment on above: Performed By: #### H STROPN #### [facility] [address] [address] [address] Vanessa Go CO2 [Moles/Vol] 19.4 mmol/L Critically low 21.0-32.0 [facility] Comment on above: Performed By: #### H STROPN #### [facility] [address] [address] [address] Vanessa Go Creatinine [Mass/Vol] 2.68 mg/dL Critically high 0.55-1.02 [facility] Comment on above: Performed By: #### H STROPN #### [facility] [address] [address] [address] Vanessa Go EGFR-AF CONGOLESE 20 mL/min/1.73m2 Critically low >=60 [facility] Comment on above: Performed By: #### H STROPN #### [facility] [address] [address] [address] Vanessa Go EGFR-NON AF CONGOLESE 17 mL/min/1.73m2 Critically low >=60 [facility] Comment on above: Performed By: #### H STROPN #### [facility] [address] [address] [address] Vanessa Go Globulin (S) [Mass/Vol] 4.4 g/dL Normal [facility] Comment on above: Performed By: #### H STROPN #### [facility] [address] [address] [address] Vanessa Go Glucose [Mass/Vol] 132 mg/dL Critically high 74-106 [facility] Comment on above: Performed By: #### H STROPN #### [facility] [address] [address] [address] Vanessa Go Potassium [Moles/Vol] 6.2 mmol/L Critically high 3.5-5.1 [facility] Comment on above: Performed By: #### H STROPN #### [facility] [address] [address] [address] Vanessa Go Protein [Mass/Vol] 7.8 g/dL Normal 6.4-8.2 [facility] Comment on above: Performed By: #### H STROPN #### [facility] [address] [address] [address] Vanessa Go Sodium [Moles/Vol] 121 mmol/L Critically low 136-145 Th e [facility] Comment on above: Performed By: #### H STROPN #### [facility] [address] [address] [address] Vanessa Go Urea nitrogen [Mass/Vol] 52.0 mg/dL Critically high 7.0-18.0 [facility] Comment on above: Performed By: #### H STROPN #### [facility] [address] [address] [address] Vanessa Go Urea nitrogen/Creatinine [Mass ratio] 19.4 mg/mg Normal [facility] Comment on above: Performed By: #### H STROPN #### [facility] [address] [address] [address] Vanessa Go TROPONIN, HIGH SENSITIVITYon 12-07-2022 HSTROP 7.6 pg/mL Normal 4.0-51.3 [facility] Comment on above: Result Comment: CUT- OFF POINTS HAVE BEEN ESTABLISHED BASED ON THE FOURTH UNIVERSAL DEFINITIONS OF MYOCARDIAL INFARCTION. THE UPPER REFERENCE LIMIT (URL) OF TROPONIN, DEFINED THE 99TH PERCENTILE OF cTnI DISTRIBUTION IN A REFERENCE POPULATION, HAS BEEN CONFIRMED THE DECISION THRESHOLD FOR MD DIAGNOSIS. Performed By: #### M G, BMP #### [facility] [address] [address] [address] Vanessa Go XR CHEST 1 Von 12-07-2022 XR CHEST 1 V EXAM: XR CHEST 1 V HISTORY: NAUSEA WITH VOMITING, UNSPECIFIED COMPARISON: 03/13/2022 TECHNIQUE: Chest X-ray AP, 1 view FINDINGS: Support devices: None. Lungs/pleura: No pneumothorax. Persistent lingular and left lower lobe atelectasis. Heart and mediastinum: Normal contours. Retrocardiac opacity, compatible with moderate hiatal hernia. Elevated left hemidiaphragm. Bones: No acute abnormality identified. Impression: No significant interval change compared to the prior study. Persistent lingular and left lower lobe atelectasis. Large hiatal hernia. Electronically authenticated by: AKASH PHILLIP Date: 2022-12-07 18:42 Normal [facility] PROTIMEon 09-21-2022 INR Coag (PPP) [Relative time] 3.27 {INR} Normal [facility] Comment on above: Performed By: #### C BC #### [facility] [address] [place] [address] Dr. Vanessa Go INR GUIDELINES SEE BELOW Normal [facility] Comment on above: Result Comment: GINO RED INR: 2.0 - 3.0 CONDITIONS NOT LISTED BELOW 2.5 - 3.5 FOR PROSTHETIC HEART VALVE REPLACEMENT 2.5 - 3.5 RECURRENT THROMBOSIS Performed By: #### C BC #### [facility] [address] [place] [address] Dr. Vanessa Go PT Coag (PPP) [Time] 32.4 s Critically high 9.0-11.6 [facility] Comment on above: Performed By: #### C BC #### [facility] [address] [place] [address] Dr. Vanessa Go PTTon 09-21-2022 aPTT Coag (Bld) [Time] 67.9 s Critically high 22.3-36.2 [facility] Comment on above: Performed By: #### C BC #### [facility] [address] [place] [address] Dr. Vanessa Go CBC AUTO DIFFon 09-20-2022 BASO # 0.0 103/ul Normal 0.0-0.1 [facility] Comment on above: Performed By: #### C BC #### [facility] [address] [place] [address] Dr. Vanessa Go Basophils/100 WBC (Bld) 0.3 % Normal 0.2-2.0 [facility] Comment on above: Performed By: #### C BC #### [facility] [address] [place] [address] Dr. Vanessa Go EO # 0.0 103/ul Normal 0.0-0.7 [facility] Comment on above: Performed By: #### C BC #### [facility] [address] [place] [address] Dr. Vanessa Go Eosinophils/100 WBC (Bld) 0.6 % Critically low 0.9-7.0 [facility] Comment on above: Performed By: #### C BC #### [facility] [address] [place] [address] Dr. Vanessa Go Erythrocyte distribution width (RBC) [Ratio] 13.4 % Normal 11.0-15.0 [facility] Comment on above: Performed By: #### C BC #### [facility] [address] [place] [address] Dr. Vanessa Go Hematocrit (Bld) [Volume fraction] 32.1 % Critically low 36.0-48.0 [facility] Comment on above: Performed By: #### C BC #### [facility] [address] [place] [address] Dr. Vanessa Go Hemoglobin (Bld) [Mass/Vol] 10.6 g/dL Critically low 12.0-16.0 [facility] Comment on above: Performed By: #### C BC #### [facility] [address] [place] [address] Dr. Vanessa Go IG # 0.03 10e3/ul Normal 0.00-0.03 [facility] Comment on above: Performed By: #### C BC #### [facility] [address] [place] [address] Dr. Vanessa Go IG % 0.4 % Normal 0.0-0.5 [facility] Comment on above: Performed By: #### C BC #### [facility] [address] [place] [address] Dr. Vanessa Go LYMPH # 1.8 103/ul Normal 1.2-3.8 [facility] Comment on above: Performed By: #### C BC #### [facility] [address] [place] [address] Dr. Vanessa Go Lymphocytes/100 WBC (Bld) 26.3 % Normal 20.5-60.0 [facility] Comment on above: Performed By: #### C BC #### [facility] [address] [place] [address] Dr. Vanessa Go MANUAL DIFF REQ NO Normal [facility] Comment on above: Performed By: #### C BC #### [facility] [address] [place] [address] Dr. Vanessa Go MCH (RBC) [Entitic mass] 26.6 pg Critically low 26.7-34.0 [facility] Comment on above: Performed By: #### C BC #### [facility] [address] [place] [address] Dr. Vanessa Go MCHC (RBC) [Mass/Vol] 33.0 g/dL Normal 29.9-35.2 [facility] Comment on above: Performed By: #### C BC #### [facility] [address] [place] [address] Dr. Vanessa Go MCV (RBC) [Entitic vol] 80.7 fL Critically low 81.0-99.0 [facility] Comment on above: Performed By: #### C BC #### [facility] [address] [place] [address] Dr. Vanessa Go MONO # 0.7 103/ul Normal 0.3-0.8 [facility] Comment on above: Performed By: #### C BC #### [facility] [address] [place] [address] Dr. Vanessa Go Monocytes/100 WBC (Bld) 9.9 % Normal 1.7-12.0 [facility] Comment on above: Performed By: #### C BC #### [facility] [address] [place] [address] Dr. Vanessa Go NEUT # 4.3 103/ul Normal 1.4-6.5 [facility] Comment on above: Performed By: #### C BC #### [facility] [address] [place] [address] Dr. Vanessa Go Neutrophils/100 WBC (Bld) 62.5 % Normal 43.0-75.0 [facility] Comment on above: Performed By: #### C BC #### [facility] [address] [place] [address] Dr. Vanessa Go Platelet mean volume (Bld) [Entitic vol] 9.5 fL Normal 9.5-13.5 [facility] Comment on above: Performed By: #### C BC #### [facility] [address] [place] [address] Dr. Vanessa Go PLT 320 103/ul Normal 150-450 [facility] Comment on above: Performed By: #### C BC #### [facility] [address] [place] [address] Dr. Vanessa Go RBC 3.98 106/ul Critically low 4.20-5.40 [facility] Comment on above: Performed By: #### C BC #### [facility] [address] [place] [address] Dr. Vanessa Go WBC 6.8 103/ul Normal 4.0-11.0 [facility] Comment on above: Performed By: #### C BC #### [facility] [address] [place] [address] Dr. Vanessa Go PROF CHEM 8 (BAS METB)on Anion gap [Moles/Vol] 13.2 mmol/L Normal [facility] Comment on above: Performed By: #### Charbel Vallejo, BMP #### [facility] [address] [place] [address] Dr. Vanessa Go Calcium [Mass/Vol] 9.2 mg/dL Normal 8.5-10.1 [facility] Comment on above: Performed By: #### Charbel Vallejo, BMP #### [facility] [address] [place] [address] Dr. Vanessa Go Chloride [Moles/Vol] 95 mmol/L Critically low 98-107 [facility] Comment on above: Performed By: #### M Genevieve, BMP #### [facility] [address] [place] [address] Dr. Vanessa Go CO2 [Moles/Vol] 24.9 mmol/L Normal 21.0-32.0 [facility] Comment on above: Performed By: #### Charbel Vallejo, BMP #### [facility] [address] [place] [address] Dr. Vanessa Go Creatinine [Mass/Vol] 1.63 mg/dL Critically high 0.55-1.02 [facility] Comment on above: Performed By: #### M G, BMP #### [facility] [address] [address] [address] Vanessa Go EGFR-AF CONGOLESE 36 mL/min/1.73m2 Critically low >=60 [facility] Comment on above: Performed By: #### M G, BMP #### [facility] [address] [address] [address] Vanessa Go EGFR-NON AF CONGOLESE 30 mL/min/1.73m2 Critically low >=60 [facility] Comment on above: Performed By: #### M G, BMP #### [facility] [address] [place] [address] Dr. Vanessa Go Glucose [Mass/Vol] 173 mg/dL Critically high 74-106 T [facility] Comment on above: Performed By: #### M G, BMP #### [facility] [address] [place] [address] Dr. Vanessa Go Potassium [Moles/Vol] 4.1 mmol/L Normal 3.5-5.1 [facility] Comment on above: Performed By: #### M G, BMP #### [facility] [address] [place] [address] Dr. Vanessa Go Sodium [Moles/Vol] 129 mmol/L Critically low 136-145 Th [facility] Comment on above: Performed By: #### Charbel G, BMP #### [facility] [address] [place] [address] Dr. Vanessa Go Urea nitrogen [Mass/Vol] 29.0 mg/dL Critically high 7.0-18.0 [facility] Comment on above: Performed By: #### M G, BMP #### [facility] [address] [place] [address] Dr. Vanessa Go Urea nitrogen/Creatinine [Mass ratio] 17.8 mg/mg Normal [facility] Comment on above: Performed By: #### M G, BMP #### [facility] [address] [place] [address] Dr. Vanessa Go PROTIMEon 09-20-2022 INR Coag (PPP) [Relative time] 1.73 {INR} Normal [facility] Comment on above: Performed By: #### Charbel Vallejo, BMP #### [facility] [address] [place] [address] Dr. Vanessa Go INR GUIDELINES SEE BELOW Normal [facility] Comment on above: Result Comment: GINO RED INR: 2.0 - 3.0 CONDITIONS NOT LISTED BELOW 2.5 - 3.5 FOR PROSTHETIC HEART VALVE REPLACEMENT 2.5 - 3.5 RECURRENT THROMBOSIS Performed By: #### Charbel Vallejo, BMP #### [facility] [address] [place] [address] Dr. Vanessa Go PT Coag (PPP) [Time] 17.8 s Critically high 9.0-11.6 [facility] Comment on above: Performed By: #### Charbel Vallejo, BMP #### [facility] [address] [place] [address] Dr. Vanessa Go PTTon 09-20-2022 aPTT Coag (Bld) [Time] 55.3 s Critically high 22.3-36.2 [facility] Comment on above: Performed By: #### Charbel Vallejo, BMP #### [facility] [address] [place] [address] Dr. Vanessa Go US KARMEN DOP LEG LTon 09-20-19 23 US KARMEN DOP LEG LT EXAMINATION: US KARMEN DOP LEG LT HISTORY: Edema of lower extremity (finding) ; left leg swelling, redness, pain COMPARISON: No relevant comparison available. FINDINGS: REGION: Left lower extremity THROMBI: None. COMPRESSIBILITY: Normal compressibility. FLOW: Normal waveform and antegrade flow between 5 and 20 cm/s. OTHER: Anechoic fluid collection within medial popliteal fossa consistent with a Mcnamara's cyst, 2.9 x 2.3 x 1.2 cm. Prominent subcutaneous edema within lateral lower leg. IMPRESSION: 1. No deep vein thrombus within the left lower extremity. 2. Mcnamara cyst within the popliteal fossa. 3. Lateral lower leg subcutaneous edema. Electronically authenticated by: SHIRLEY GOMEZ Date: 2022-09-20 12:32 Normal [facility] CBC AUTO DIFFon 05-21-2022 BASO # 0.0 103/ul Normal 0.0-0.1 [facility] Comment on above: Performed By: #### C BC #### [facility] [address] [address] [address] Vanessa Go Basophils/100 WBC (Bld) 0.2 % Normal 0.2-2.0 [facility] Comment on above: Performed By: #### C BC #### [facility] [address] [place] [address] Dr. Vanessa Go EO # 0.0 103/ul Normal 0.0-0.7 [facility] Comment on above: Performed By: #### C BC #### [facility] [address] [place] [address] Dr. Vanessa Go Eosinophils/100 WBC (Bld) 0.4 % Critically low 0.9-7.0 [facility] Comment on above: Performed By: #### C BC #### [facility] [address] [place] [address] Dr. Vanessa Go Erythrocyte distribution width (RBC) [Ratio] 13.7 % Normal 11.0-15.0 [facility] Comment on above: Performed By: #### C BC #### [facility] [address] [place] [address] Dr. Vanessa Go Hematocrit (Bld) [Volume fraction] 31.2 % Critically low 36.0-48.0 [facility] Comment on above: Performed By: #### C BC #### [facility] [address] [place] [address] Dr. Vanessa Go Hemoglobin (Bld) [Mass/Vol] 9.9 g/dL Critically low 12.0-16.0 [facility] Comment on above: Performed By: #### C BC #### [facility] [address] [place] [address] Dr. Vanessa Go IG # 0.04 10e3/ul Critically high 0.00-0.03 [facility] Comment on above: Performed By: #### C BC #### [facility] [address] [place] [address] Dr. Vanessa Go IG % 0.4 % Normal 0.0-0.5 [facility] Comment on above: Performed By: #### C BC #### [facility] [address] [place] [address] Dr. Vanessa Go LYMPH # 1.7 103/ul Normal 1.2-3.8 [facility] Comment on above: Performed By: #### C BC #### [facility] [address] [place] [address] Dr. Vanessa Go Lymphocytes/100 WBC (Bld) 17.2 % Critically low 20.5-60.0 [facility] Comment on above: Performed By: #### C BC #### [facility] [address] [place] [address] Dr. Vanessa Go MANUAL DIFF REQ NO Normal [facility] Comment on above: Performed By: #### C BC #### [facility] [address] [place] [address] Dr. Vanessa Go MCH (RBC) [Entitic mass] 26.3 pg Critically low 26.7-34.0 [facility] Comment on above: Performed By: #### C BC #### [facility] [address] [place] [address] Dr. Vanessa Go MCHC (RBC) [Mass/Vol] 31.7 g/dL Normal 29.9-35.2 [facility] Comment on above: Performed By: #### C BC #### [facility] [address] [place] [address] Dr. Vanessa Go MCV (RBC) [Entitic vol] 82.8 fL Normal 81.0-99.0 [facility] Comment on above: Performed By: #### C BC #### [facility] [address] [place] [address] Dr. Vanessa Go MONO # 1.2 103/ul Critically high 0.3-0.8 [facility] Comment on above: Performed By: #### C BC #### [facility] [address] [place] [address] Dr. Vanessa Go Monocytes/100 WBC (Bld) 12.2 % Critically high 1.7-12.0 [facility] Comment on above: Performed By: #### C BC #### [facility] [address] [place] [address] Dr. Vanessa Go NEUT # 6.7 103/ul Critically high 1.4-6.5 [facility] Comment on above: Performed By: #### C BC #### [facility] [address] [place] [address] Dr. Vanessa Go Neutrophils/100 WBC (Bld) 69.6 % Normal 43.0-75.0 [facility] Comment on above: Performed By: #### C BC #### [facility] [address] [place] [address] Dr. Vanessa Go Platelet mean volume (Bld) [Entitic vol] 9.4 fL Critically low 9.5-13.5 [facility] Comment on above: Performed By: #### C BC #### [facility] [address] [place] [address] Dr. Vanessa Go PLT 255 103/ul Normal 150-450 [facility] Comment on above: Performed By: #### C BC #### [facility] [address] [place] [address] Dr. Vanessa Go RBC 3.77 106/ul Critically low 4.20-5.40 [facility] Comment on above: Performed By: #### C BC #### [facility] [address] [place] [address] Dr. Vanessa Go WBC 9.6 103/ul Normal 4.0-11.0 [facility] Comment on above: Performed By: #### C BC #### [facility] [address] [place] [address] Dr. Vanessa Go PROF 14(COMP METB)on 022 Albumin [Mass/Vol] 2.5 g/dL Critically low 3.4-5.0 [facility] Comment on above: Performed By: #### M Genevieve, BMP #### [facility] [address] [place] [address] Dr. Vanessa Go Albumin/Globulin [Mass ratio] 0.7 {ratio} Normal [facility] Comment on above: Performed By: #### M G, BMP #### [facility] [address] [place] [address] Dr. Vanessa Go ALP [Catalytic activity/Vol] 76 U/L Normal 46-116 [facility] Comment on above: Performed By: #### M G, BMP #### [facility] [address] [place] [address] Dr. Vanessa Go ALT [Catalytic activity/Vol] 12 U/L Critically low 14-59 [facility] Comment on above: Performed By: #### M G, BMP #### [facility] [address] [place] [address] Dr. Vanessa Go Anion gap [Moles/Vol] 11.4 mmol/L Normal [facility] Comment on above: Performed By: #### Charbel Vallejo, BMP #### [facility] [address] [place] [address] Dr. Vanessa Go AST [Catalytic activity/Vol] 13 U/L Critically low 15-37 [facility] Comment on above: Performed By: #### Charbel Vallejo, BMP #### [facility] [address] [place] [address] Dr. Vanessa Go Bilirubin [Mass/Vol] 0.8 mg/dL Normal 0.2-1.0 [facility] Comment on above: Performed By: #### Charbel Genevieve, BMP #### [facility] [address] [place] [address] Dr. Vanessa Go Calcium [Mass/Vol] 8.9 mg/dL Normal 8.5-10.1 [facility] Comment on above: Performed By: #### M G, BMP #### [facility] [address] [place] [address] Dr. Vanessa Go Chloride [Moles/Vol] 99 mmol/L Normal 98-107 [facility] Comment on above: Performed By: #### M G, BMP #### [facility] [address] [place] [address] Dr. Vanessa Go CO2 [Moles/Vol] 24.9 mmol/L Normal 21.0-32.0 [facility] Comment on above: Performed By: #### M G, BMP #### [facility] [address] [address] [address] Vanessa Go Creatinine [Mass/Vol] 1.04 mg/dL Critically high 0.55-1.02 [facility] Comment on above: Performed By: #### Charbel G, BMP #### [facility] [address] [address] [address] Vanessa Go EGFR-AF CONGOLESE >60 Normal >=60 [facility] Comment on above: Performed By: #### Charbel G, BMP #### [facility] [address] [address] [address] Vanessa Go EGFR-NON AF CONGOLESE 50 mL/min/1.73m2 Critically low >=60 [facility] Comment on above: Performed By: #### Charbel Vallejo, BMP #### [facility] [address] [place] [address] Dr. Vanessa Go Globulin (S) [Mass/Vol] 3.7 g/dL Normal [facility] Comment on above: Performed By: #### Charbel G, BMP #### [facility] [address] [address] [address] Vanessa Go Glucose [Mass/Vol] 110 mg/dL Critically high 74-106 [facility] Comment on above: Performed By: #### Charbel Vallejo, BMP #### [facility] [address] [address] [address] Vanessa Go Potassium [Moles/Vol] 4.3 mmol/L Normal 3.5-5.1 [facility] Comment on above: Performed By: #### M G, BMP #### [facility] [address] [address] [address] Vanessa Go Protein [Mass/Vol] 6.2 g/dL Critically low 6.4-8.2 [facility] Comment on above: Performed By: #### Charbel Vallejo, BMP #### [facility] [address] [address] [address] Vanessa Go Sodium [Moles/Vol] 131 mmol/L Critically low 136-145 Th e [facility] Comment on above: Performed By: #### M G, BMP #### [facility] [address] [address] [address] Vanessa Go Urea nitrogen [Mass/Vol] 15.0 mg/dL Normal 7.0-18.0 [facility] Comment on above: Performed By: #### M G, BMP #### [facility] [address] [address] [address] Vanessa Go Urea nitrogen/Creatinine [Mass ratio] 14.4 mg/mg Normal [facility] Comment on above: Performed By: #### M Genevieve, BMP #### [facility] [address] [address] [address] Vanessa Go US KIDNEYSon 05-21-2022 US KIDNEYS EXAMINATION: US KIDNEYS HISTORY: Obstruction of pelviureteric junction ; left hydronephrosis; post left renal stent placement COMPARISON: CT abdomen pelvis 05/19/2022, ultrasound kidneys 01/21/2021 TECHNIQUE: Ultrasound examination was performed of the kidneys and urinary bladder. FINDINGS: RIGHT KIDNEY: Slightly prominent extrarenal pelvis without dilated calyces, consistent with recent CT study. No appreciable mass or calculi. Normal renal cortical parenchymal echogenicity. Color Doppler demonstrates blood flow within the kidney. Kidney: 110.3 x 4.4 x 5.9 cm. No significant cortical thinning. LEFT KIDNEY: Several small peripheral cysts. No evidence of pelvocaliectasis, mass, or calculi. Normal renal cortical parenchymal echogenicity. Color Doppler demonstrates blood flow within the kidney. Kidney: 12.7 x 4.7 x 5.5 cm. No significant cortical thinning. BLADDER: Left ureteral stents noted. No visible wall thickening, mass, or calculi. IMPRESSION: 1. Resolution of left hydronephrosis following ureteral stent placement. Electronically authenticated by: SHIRLEY GOMEZ Date: 2022-05-21 08:58 Normal [facility] CBC AUTO DIFFon 05-20-2022 BASO # 0.0 103/ul Normal 0.0-0.1 [facility] Comment on above: Performed By: #### C BC #### [facility] [address] [address] [address] Vanessa Go Basophils/100 WBC (Bld) 0.1 % Critically low 0.2-2.0 [facility] Comment on above: Performed By: #### C BC #### [facility] [address] [place] [address] Dr. Vanessa Go EO # 0.0 103/ul Normal 0.0-0.7 [facility] Comment on above: Performed By: #### C BC #### [facility] [address] [place] [address] Dr. Vanessa Go Eosinophils/100 WBC (Bld) 0.3 % Critically low 0.9-7.0 [facility] Comment on above: Performed By: #### C BC #### [facility] [address] [place] [address] Dr. Vanessa Go Erythrocyte distribution width (RBC) [Ratio] 13.6 % Normal 11.0-15.0 [facility] Comment on above: Performed By: #### C BC #### [facility] [address] [place] [address] Dr. Vanessa Go Hematocrit (Bld) [Volume fraction] 32.2 % Critically low 36.0-48.0 [facility] Comment on above: Performed By: #### C BC #### [facility] [address] [place] [address] Dr. Vanessa Go Hemoglobin (Bld) [Mass/Vol] 10.1 g/dL Critically low 12.0-16.0 [facility] Comment on above: Performed By: #### C BC #### [facility] [address] [place] [address] Dr. Vanessa oG IG # 0.04 10e3/ul Critically high 0.00-0.03 [facility] Comment on above: Performed By: #### C BC #### [facility] [address] [place] [address] Dr. Vanessa Go IG % 0.4 % Normal 0.0-0.5 [facility] Comment on above: Performed By: #### C BC #### [facility] [address] [address] [address] Vanessa Go LYMPH # 1.2 103/ul Normal 1.2-3.8 [facility] Comment on above: Performed By: #### C BC #### [facility] [address] [address] [address] Vanessa Go Lymphocytes/100 WBC (Bld) 13.3 % Critically low 20.5-60.0 [facility] Comment on above: Performed By: #### C BC #### [facility] [address] [place] [address] Dr. Vanessa Go MANUAL DIFF REQ NO Normal [facility] Comment on above: Performed By: #### C BC #### [facility] [address] [place] [address] Dr. Vanessa Go MCH (RBC) [Entitic mass] 26.0 pg Critically low 26.7-34.0 [facility] Comment on above: Performed By: #### C BC #### [facility] [address] [place] [address] Dr. Vanessa Go MCHC (RBC) [Mass/Vol] 31.4 g/dL Normal 29.9-35.2 [facility] Comment on above: Performed By: #### C BC #### [facility] [address] [place] [address] Dr. Vanessa Go MCV (RBC) [Entitic vol] 83.0 fL Normal 81.0-99.0 [facility] Comment on above: Performed By: #### C BC #### [facility] [address] [place] [address] Dr. Vanessa Go MONO # 1.0 103/ul Critically high 0.3-0.8 [facility] Comment on above: Performed By: #### C BC #### [facility] [address] [place] [address] Dr. Vanessa Go Monocytes/100 WBC (Bld) 10.9 % Normal 1.7-12.0 [facility] Comment on above: Performed By: #### C BC #### [facility] [address] [address] [address] Vanessa Go NEUT # 7.0 103/ul Critically high 1.4-6.5 [facility] Comment on above: Performed By: #### C BC #### [facility] [address] [address] [address] Vanessa Go Neutrophils/100 WBC (Bld) 75.0 % Normal 43.0-75.0 [facility] Comment on above: Performed By: #### C BC #### [facility] [address] [address] [address] Vanessa Go Platelet mean volume (Bld) [Entitic vol] 9.1 fL Critically low 9.5-13.5 [facility] Comment on above: Performed By: #### C BC #### [facility] [address] [place] [address] Dr. Vanessa Go PLT 302 103/ul Normal 150-450 [facility] Comment on above: Performed By: #### C BC #### [facility] [address] [address] [address] Vanessa Go RBC 3.88 106/ul Critically low 4.20-5.40 [facility] Comment on above: Performed By: #### C BC #### [facility] [address] [place] [address] Dr. Vanessa Go WBC 9.3 103/ul Normal 4.0-11.0 [facility] Comment on above: Performed By: #### C BC #### [facility] [address] [place] [address] Dr. Vanessa Go LACTATE/LACTIC ACIDon 2021 Lactate [Moles/Vol] 0.6 mmol/L Normal 0.4-1.9 [facility] Comment on above: Performed By: #### M G, BMP #### [facility] [address] [place] [address] Dr. Vanessa Go POINT OF CARE GLUCOSEon Glucose [Mass/Vol] 155 mg/dL Critically high 74-106 [facility] Comment on above: Performed By: #### C BC #### [facility] [address] [address] [address] Vanessa Go Glucose [Mass/Vol] 105 mg/dL Normal 74-106 [facility] Comment on above: Performed By: #### M G, BMP #### [facility] [address] [address] [address] Vanessa Go Glucose [Mass/Vol] 102 mg/dL Normal 74-106 [facility] Comment on above: Performed By: #### P OCGLUC #### [facility] [address] [address] [address] Vanessa Go PROF 14(COMP METB)on 022 Albumin [Mass/Vol] 2.8 g/dL Critically low 3.4-5.0 [facility] Comment on above: Performed By: #### H STROPN #### [facility] [address] [place] [address] Dr. Vanessa Go Albumin/Globulin [Mass ratio] 0.7 {ratio} Normal [facility] Comment on above: Performed By: #### H STROPN #### [facility] [address] [address] [address] Vanessa Go ALP [Catalytic activity/Vol] 85 U/L Normal 46-116 [facility] Comment on above: Performed By: #### H STROPN #### [facility] [address] [address] [address] Vanessa Go ALT [Catalytic activity/Vol] 12 U/L Critically low 14-59 [facility] Comment on above: Performed By: #### H STROPN #### [facility] [address] [address] [address] Vanessa Go Anion gap [Moles/Vol] 13.4 mmol/L Normal [facility] Comment on above: Performed By: #### H STROPN #### [facility] [address] [address] [address] Vanessa Go AST [Catalytic activity/Vol] 14 U/L Critically low 15-37 [facility] Comment on above: Performed By: #### H STROPN #### [facility] [address] [address] [address] Vanessa Go Bilirubin [Mass/Vol] 0.7 mg/dL Normal 0.2-1.0 [facility] Comment on above: Performed By: #### H STROPN #### [facility] [address] [address] [address] Vanessa Go Calcium [Mass/Vol] 8.7 mg/dL Normal 8.5-10.1 [facility] Comment on above: Performed By: #### H STROPN #### [facility] [address] [address] [address] Vanessa Go Chloride [Moles/Vol] 99 mmol/L Normal 98-107 [facility] Comment on above: Performed By: #### H STROPN #### [facility] [address] [place] [address] Dr. Vanessa Go CO2 [Moles/Vol] 26.7 mmol/L Normal 21.0-32.0 [facility] Comment on above: Performed By: #### H STROPN #### [facility] [address] [address] [address] Vanessa Go Creatinine [Mass/Vol] 1.33 mg/dL Critically high 0.55-1.02 [facility] Comment on above: Performed By: #### H STROPN #### [facility] [address] [address] [address] Vanessa Go EGFR-AF CONGOLESE 46 mL/min/1.73m2 Critically low >=60 [facility] Comment on above: Performed By: #### H STROPN #### [facility] [address] [address] [address] Vanessa Go EGFR-NON AF CONGOLESE 38 mL/min/1.73m2 Critically low >=60 [facility] Comment on above: Performed By: #### H STROPN #### [facility] [address] [address] [address] Vanessa Go Globulin (S) [Mass/Vol] 4.0 g/dL Normal [facility] Comment on above: Performed By: #### H STROPN #### [facility] [address] [address] [address] Vanessa Go Glucose [Mass/Vol] 128 mg/dL Critically high 74-106 [facility] Comment on above: Performed By: #### H STROPN #### [facility] [address] [address] [address] Vanessa Go Potassium [Moles/Vol] 5.1 mmol/L Normal 3.5-5.1 [facility] Comment on above: Performed By: #### H STROPN #### [facility] [address] [address] [address] Vanessa Go Protein [Mass/Vol] 6.8 g/dL Normal 6.4-8.2 [facility] Comment on above: Performed By: #### H STROPN #### [facility] [address] [address] [address] Vanessa Go Sodium [Moles/Vol] 134 mmol/L Critically low 136-145 [facility] Comment on above: Performed By: #### H STROPN #### [facility] [address] [address] [address] Vanessa Go Urea nitrogen [Mass/Vol] 22.0 mg/dL Critically high 7.0-18.0 [facility] Comment on above: Performed By: #### H STROPN #### [facility] [address] [address] [address] Vanessa Go Urea nitrogen/Creatinine [Mass ratio] 16.5 mg/mg Normal [facility] Comment on above: Performed By: #### H STROPN #### [facility] [address] [address] [address] Vanessa Go CBC AUTO DIFFon 05-19-2022 BASO # 0.0 103/ul Normal 0.0-0.1 [facility] Comment on above: Performed By: #### C BC #### [facility] [address] [address] [address] Vanessa Go Basophils/100 WBC (Bld) 0.2 % Normal 0.2-2.0 [facility] Comment on above: Performed By: #### C BC #### [facility] [address] [address] [address] Vanessa Go EO # 0.1 103/ul Normal 0.0-0.7 [facility] Comment on above: Performed By: #### C BC #### [facility] [address] [place] [address] Dr. Vanessa Go Eosinophils/100 WBC (Bld) 0.3 % Critically low 0.9-7.0 [facility] Comment on above: Performed By: #### C BC #### [facility] [address] [place] [address] Dr. Vanessa Go Erythrocyte distribution width (RBC) [Ratio] 13.6 % Normal 11.0-15.0 [facility] Comment on above: Performed By: #### C BC #### [facility] [address] [place] [address] Dr. Vanessa Go Hematocrit (Bld) [Volume fraction] 37.2 % Normal 36.0-48.0 [facility] Comment on above: Performed By: #### C BC #### [facility] [address] [place] [address] Dr. Vanessa Go Hemoglobin (Bld) [Mass/Vol] 11.7 g/dL Critically low 12.0-16.0 [facility] Comment on above: Performed By: #### C BC #### [facility] [address] [place] [address] Dr. Vanessa Go IG # 0.07 10e3/ul Critically high 0.00-0.03 [facility] Comment on above: Performed By: #### C BC #### [facility] [address] [place] [address] Dr. Vanessa Go IG % 0.4 % Normal 0.0-0.5 [facility] Comment on above: Performed By: #### C BC #### [facility] [address] [place] [address] Dr. Vanessa oG LYMPH # 2.7 103/ul Normal 1.2-3.8 [facility] Comment on above: Performed By: #### C BC #### [facility] [address] [address] [address] Vanessa Go Lymphocytes/100 WBC (Bld) 15.6 % Critically low 20.5-60.0 [facility] Comment on above: Performed By: #### C BC #### [facility] [address] [place] [address] Dr. Vanessa Go MANUAL DIFF REQ NO Normal [facility] Comment on above: Performed By: #### C BC #### [facility] [address] [place] [address] Dr. Vanessa Go MCH (RBC) [Entitic mass] 25.7 pg Critically low 26.7-34.0 [facility] Comment on above: Performed By: #### C BC #### [facility] [address] [place] [address] Dr. Vanessa Go MCHC (RBC) [Mass/Vol] 31.5 g/dL Normal 29.9-35.2 [facility] Comment on above: Performed By: #### C BC #### [facility] [address] [place] [address] Dr. Vanessa Go MCV (RBC) [Entitic vol] 81.8 fL Normal 81.0-99.0 [facility] Comment on above: Performed By: #### C BC #### [facility] [address] [place] [address] Dr. Vanessa Go MONO # 1.3 103/ul Critically high 0.3-0.8 [facility] Comment on above: Performed By: #### C BC #### [facility] [address] [place] [address] Dr. Vanessa Go Monocytes/100 WBC (Bld) 7.6 % Normal 1.7-12.0 [facility] Comment on above: Performed By: #### C BC #### [facility] [address] [place] [address] Dr. Vanessa Go NEUT # 13.1 103/ul Critically high 1.4-6.5 [facility] Comment on above: Performed By: #### C BC #### [facility] [address] [address] [address] Vanessa Go Neutrophils/100 WBC (Bld) 75.9 % Critically high 43.0-75.0 [facility] Comment on above: Performed By: #### C BC #### [facility] [address] [address] [address] Vanessa Go Platelet mean volume (Bld) [Entitic vol] 9.2 fL Critically low 9.5-13.5 [facility] Comment on above: Performed By: #### C BC #### [facility] [address] [address] [address] Vanessa Go PLT 416 103/ul Normal 150-450 [facility] Comment on above: Performed By: #### C BC #### [facility] [address] [place] [address] Dr. Vanessa Go RBC 4.55 106/ul Normal 4.20-5.40 [facility] Comment on above: Performed By: #### C BC #### [facility] [address] [place] [address] Dr. Vanessa Go WBC 17.3 103/ul Critically high 4.0-11.0 [facility] Comment on above: Performed By: #### C BC #### [facility] [address] [place] [address] ABD/PELV W CONon 05-19-20 CT ABD/PELV W CON CT ABDOMEN/PELVIS WI IV CONTRAST. INDICATION: Hydronephrosis. COMPARISON: 05/19/2022 TECHNIQUE: Contiguous axial images were obtained from the lung bases to the pelvic floor following the intravenous administration of contrast. Coronal and sagittal reformations are provided. Approximately ML ml Omnipaque 350 was administered intravenously. FINDINGS: LOWER LUNGS: Clear. LIVER/BILIARY TREE: No mass. There is mild intrahepatic ductal dilatation likely related to the patient's cholecystectomy. GALLBLADDER: Status post cholecystectomy. CBD: Normal CBD. SPLEEN: Normal in size. PANCREAS: No acute findings. No peripancreatic fluid or inflammation. No pancreatic duct dilatation. No discrete mass. ADRENALS: Normal. KIDNEYS: There is severe left hydronephrosis with abrupt transitioning at the ureteropelvic junction. There is no contrast in the left renal pelvis or left ureter. Bilateral nephrolithiasis. There is contrast in the right ureter. STOMACH AND BOWEL: Large hiatal hernia. No dilated bowel loops. No bowel wall thickening. Colonic diverticulosis. APPENDIX: Normal appendix. PERITONEAL CAVITY: There is a small amount of left perinephric free fluid.. ABDOMINAL WALL: No subcutaneous stranding. No subcutaneous fluid collection. LYMPH NODES: No mesenteric or retroperitoneal lymphadenopathy by CT criteria. ABDOMINAL AORTA: No aneurysm. PELVIS: No acute abnormality. MUSCULOSKELETAL: No acute osseous abnormality. 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 Electronically authenticated by: JOHNSON MORALES Date: 2022-05-19 19:17 Normal [facility] CT ABD/PELVIS WO CONon 05-19 CT ABD/PELVIS WO CON CT ABDOMEN/PELVIS WITHOUT IV CONTRAST. INDICATION: Left flank pain COMPARISON: 06/04/2021 TECHNIQUE: Contiguous axial images were obtained from the lung bases to the pelvic floor without intravenous or oral contrast. Coronal and sagittal reformations are provided. FINDINGS: LOWER LUNGS: There is mild atelectasis in the lower lobes. LIVER/BILIARY TREE: No discrete lesion. No intrahepatic ductal dilatation. GALLBLADDER: Status post cholecystectomy. CBD: Normal CBD. SPLEEN: Normal in size. PANCREAS: No appreciable peripancreatic fluid. No pancreatic ductal dilatation. No discrete lesion. ADRENALS: Normal. KIDNEYS: There is severe left hydronephrosis with abrupt transitioning at the UPJ. No calcified obstructing ureteropelvic junction stone.. Bilateral nephrolithiasis. There is left perinephric stranding mild fluid. STOMACH AND BOWEL: Large hiatal hernia. No dilated bowel loops. No bowel wall thickening. Colonic diverticulosis. APPENDIX: Normal appendix. PERITONEAL CAVITY: No fluid. There is left perinephric stranding and mild fluid. ABDOMINAL WALL: No subcutaneous stranding. No subcutaneous fluid collection. Small umbilical hernia containing fat. LYMPH NODES: No mesenteric or retroperitoneal lymphadenopathy by CT criteria. ABDOMINAL AORTA: No aneurysm. PELVIS: No acute abnormality. MUSCULOSKELETAL: No acute osseous abnormality. 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 IMPRESSION: 1. Severe left hydronephrosis with abrupt transitioning at the UPJ. There is no calcified obstructing UPJ stone. These findings may be secondary to UPJ stricture. Consider CT urogram. 2. Bilateral nephrolithiasis. 3. Large hiatal hernia. Electronically authenticated by: JOHNSON MORALES Date: 2022-05-19 17:48 Normal [facility] CULTURE URINEon 05-19-2022 CULTURE URINE Culture Observations : LIGHT GROWTH OF MIXED GENITAL ARIANA. NO POTENTIAL PATHOGENS SEEN. Normal [facility] Comment on above: Performed By: #### C BC #### [facility] [address] [place] [address] Dr. Vanessa Go Covid-19 PCR ([facility])on SARS-CoV-2 (COVID-19) RNA MITCHELL+probe Ql (Unsp spec) Not detected Normal NOT DETECTED [facility] Comment on above: Result Comment: When diagnostic testing is negative, the possibility of a false negative should be considered in the context of a patient's recent exposures and the presence of clinical signs and symptoms consistent with SARS-CoV-2. This test is not yet approved or cleared by the [place] FDA. When there are no FDA-approved or cleared tests available, and other criteria are met, FDA can make tests available under an emergency access mechanism called an Emergency Use Authorization (EUA). The EUA for this test is supported by the [place] of Health and Human Service's declaration that circumstances exist to justify the emergency use of in vitro diagnostics for the detection and/or diagnosis of the virus that causes COVID-19. This EUA will remain in effect for the duration of the COVID-19 declaration justifying emergency of IVDs, unless it is terminated or revoked by the FDA (after which the test may no longer be used). Performed By: #### C BC #### [facility] [address] [place] [address] [id number] [address] Vansesa Go ER URINE PROFILEon 2 Bilirubin Ql (U) Negative Normal NEGATIVE [facility] Comment on above: Performed By: #### C BC #### [facility] [address] [place] [address] [id number] [address] Vanessa Go Clarity (U) CLEAR Normal CLEAR [facility] Comment on above: Performed By: #### C BC #### [facility] [address] [place] [address] Dr. Vanessa Go Color (U) LT. YELLOW Normal YELLOW [facility] Comment on above: Performed By: #### C BC #### [facility] [address] [place] [address] Dr. Vanessa COTTER A micrscopic examination will be performed if indicated. Normal [facility] Comment on above: Performed By: #### C BC #### [facility] [address] [place] [address] Dr. Vanessa Go Glucose Ql (U) Negative Normal NEGATIVE [facility] Comment on above: Performed By: #### C BC #### [facility] [address] [place] [address] Dr. Vanessa Go Hemoglobin Ql (U) TRACE-INTACT Abnormal NEGATIVE [facility] Comment on above: Performed By: #### C BC #### [facility] [address] [place] [address] Dr. Vanessa Go Ketones Ql (U) Negative Normal NEGATIVE [facility] Comment on above: Performed By: #### C BC #### [facility] [address] [place] [address] Dr. Vanessa Go LEUKOCYTES LARGE Abnormal NEGATIVE [facility] Comment on above: Performed By: #### C BC #### [facility] [address] [place] [address] Dr. Vanessa Go Nitrite Ql (U) Negative Normal NEGATIVE [facility] Comment on above: Performed By: #### C BC #### [facility] [address] [place] [address] Dr. Vanessa Go pH (U) 6.0 [pH] Normal 5-9 [facility] Comment on above: Performed By: #### C BC #### [facility] [address] [place] [address] Dr. Vanessa Go SPEC GRAVITY 1.020 Normal 1.005-<=1.025 [facility] Comment on above: Performed By: #### C BC #### [facility] [address] [place] [address] Dr. Vanessa Go UA PROTEIN Negative Normal NEGATIVE/ TRACE [facility] Comment on above: Performed By: #### C BC #### [facility] [address] [place] [address] Dr. Vanessa Go UR MICRO IND INDICATED Normal [facility] Comment on above: Performed By: #### C BC #### [facility] [address] [place] [address] Dr. Vanessa Go Urobilinogen Qn (U) 0.2 {Vin'U}/dL Normal 0.2 - 1. 0 [facility] Comment on above: Performed By: #### C BC #### [facility] [address] [place] [address] Dr. Vanessa Go LACTATE/LACTIC ACIDon 2021 Lactate [Moles/Vol] 1.5 mmol/L Normal 0.4-1.9 [facility] Comment on above: Performed By: #### M G, BMP #### [facility] [address] [place] [address] Dr. Vanessa Go POINT OF CARE GLUCOSEon 10-0 Glucose [Mass/Vol] 155 mg/dL Critically high 74-106 [facility] Comment on above: Performed By: #### P OCGLUC #### [facility] [address] [place] [address] Dr. Vanessa Go PROF CHEM 8 (BAS METB)on Anion gap [Moles/Vol] 13.3 mmol/L Normal [facility] Comment on above: Performed By: #### C BC #### [facility] [address] [place] [address] Dr. Vanessa Go Calcium [Mass/Vol] 9.5 mg/dL Normal 8.5-10.1 [facility] Comment on above: Performed By: #### C BC #### [facility] [address] [place] [address] Dr. Vanessa Go Chloride [Moles/Vol] 96 mmol/L Critically low 98-107 [facility] Comment on above: Performed By: #### C BC #### [facility] [address] [address] [address] Vanessa Go CO2 [Moles/Vol] 23.0 mmol/L Normal 21.0-32.0 [facility] Comment on above: Performed By: #### C BC #### [facility] [address] [address] [address] Vanessa Go Creatinine [Mass/Vol] 1.31 mg/dL Critically high 0.55-1.02 [facility] Comment on above: Performed By: #### C BC #### [facility] [address] [address] [address] Vanessa Go EGFR-AF CONGOLESE 47 mL/min/1.73m2 Critically low >=60 [facility] Comment on above: Performed By: #### C BC #### [facility] [address] [address] [address] Vanessa Go EGFR-NON AF CONGOLESE 38 mL/min/1.73m2 Critically low >=60 [facility] Comment on above: Performed By: #### C BC #### [facility] [address] [address] [address] Vanessa Go Glucose [Mass/Vol] 185 mg/dL Critically high 74-106 [facility] Comment on above: Performed By: #### C BC #### [facility] [address] [address] [address] Vanessa Go Potassium [Moles/Vol] 4.3 mmol/L Normal 3.5-5.1 [facility] Comment on above: Performed By: #### C BC #### [facility] [address] [address] [address] Vanessa Go Sodium [Moles/Vol] 128 mmol/L Critically low 136-145 [facility] Comment on above: Performed By: #### C BC #### [facility] [address] [address] [address] Vanessa Go Urea nitrogen [Mass/Vol] 25.0 mg/dL Critically high 7.0-18.0 [facility] Comment on above: Performed By: #### C BC #### [facility] [address] [place] [address] Dr. Vanessa Go Urea nitrogen/Creatinine [Mass ratio] 19.1 mg/mg Normal [facility] Comment on above: Performed By: #### C BC #### [facility] [address] [place] [address] Dr. Vanessa Go URINE MICROSCOPIC ONLYon BACTERIA TRACE Abnormal NONE SEEN [facility] Comment on above: Performed By: #### C BC #### [facility] [address] [place] [address] Dr. Vanessa Go Bacteria identified Cx Nom (U) INDICATED Normal [facility] Comment on above: Performed By: #### C BC #### [facility] [address] [place] [address] Dr. Vanessa Go CAST NONE SEEN Normal NONE SEEN [facility] Comment on above: Performed By: #### C BC #### [facility] [address] [place] [address] Dr. Vanessa Go Crystals LM Nom (Urine sed) NONE SEEN Normal NONE SEEN [facility] Comment on above: Performed By: #### C BC #### [facility] [address] [place] [address] Dr. Vanessa Go Epithelial cells LM Ql (Urine sed) FEW Abnormal NONE SEEN /RARE [facility] Comment on above: Performed By: #### C BC #### [facility] [address] [place] [address] Dr. Vanessa Go MUCOUS NONE SEEN Normal NONE SEEN [facility] Comment on above: Performed By: #### C BC #### [facility] [address] [place] [address] Dr. Vanessa Go RBC 2-5 Abnormal 0-2 [facility] Comment on above: Performed By: #### C BC #### [facility] [address] [place] [address] Dr. Vanessa Go WBC 20-50 Abnormal NONE SEEN [facility] Comment on above: Performed By: #### C BC #### [facility] [address] [place] [address] Dr. Vanessa Go CBC AUTO DIFFon 03-14-2022 BASO # 0.0 103/ul Normal 0.0-0.1 [facility] Comment on above: Performed By: #### C BC #### [facility] [address] [place] [address] Dr. Vanessa Go Basophils/100 WBC (Bld) 0.2 % Normal 0.2-2.0 [facility] Comment on above: Performed By: #### C BC #### [facility] [address] [place] [address] Dr. Vanessa Go EO # 0.1 103/ul Normal 0.0-0.7 [facility] Comment on above: Performed By: #### C BC #### [facility] [address] [place] [address] Dr. Vanessa Go Eosinophils/100 WBC (Bld) 0.6 % Critically low 0.9-7.0 [facility] Comment on above: Performed By: #### C BC #### [facility] [address] [place] [address] Dr. Vanessa Go Erythrocyte distribution width (RBC) [Ratio] 13.8 % Normal 11.0-15.0 [facility] Comment on above: Performed By: #### C BC #### [facility] [address] [place] [address] Dr. Vanessa Go Hematocrit (Bld) [Volume fraction] 32.2 % Critically low 36.0-48.0 [facility] Comment on above: Performed By: #### C BC #### [facility] [address] [place] [address] Dr. Vanessa Go Hemoglobin (Bld) [Mass/Vol] 10.4 g/dL Critically low 12.0-16.0 [facility] Comment on above: Performed By: #### C BC #### [facility] [address] [place] [address] Dr. Vanessa Go IG # 0.03 10e3/ul Normal 0.00-0.03 [facility] Comment on above: Performed By: #### C BC #### [facility] [address] [place] [address] Dr. Vanessa Go IG % 0.3 % Normal 0.0-0.5 [facility] Comment on above: Performed By: #### C BC #### [facility] [address] [place] [address] Dr. Vanessa Go LYMPH # 2.4 103/ul Normal 1.2-3.8 [facility] Comment on above: Performed By: #### C BC #### [facility] [address] [place] [address] Dr. Vanessa Go Lymphocytes/100 WBC (Bld) 25.0 % Normal 20.5-60.0 [facility] Comment on above: Performed By: #### C BC #### [facility] [address] [place] [address] Dr. Vanessa Go MANUAL DIFF REQ NO Normal [facility] Comment on above: Performed By: #### C BC #### [facility] [address] [place] [address] Dr. Vanessa Go MCH (RBC) [Entitic mass] 25.8 pg Critically low 26.7-34.0 [facility] Comment on above: Performed By: #### C BC #### [facility] [address] [place] [address] Dr. Vanessa Go MCHC (RBC) [Mass/Vol] 32.3 g/dL Normal 29.9-35.2 [facility] Comment on above: Performed By: #### C BC #### [facility] [address] [place] [address] Dr. Vanessa Go MCV (RBC) [Entitic vol] 79.9 fL Critically low 81.0-99.0 [facility] Comment on above: Performed By: #### C BC #### [facility] [address] [place] [address] Dr. Vanessa Go MONO # 0.8 103/ul Normal 0.3-0.8 [facility] Comment on above: Performed By: #### C BC #### [facility] [address] [place] [address] Dr. Vanessa Go Monocytes/100 WBC (Bld) 8.8 % Normal 1.7-12.0 [facility] Comment on above: Performed By: #### C BC #### [facility] [address] [place] [address] Dr. Vanessa Go NEUT # 6.1 103/ul Normal 1.4-6.5 [facility] Comment on above: Performed By: #### C BC #### [facility] [address] [place] [address] Dr. Vanessa Go Neutrophils/100 WBC (Bld) 65.1 % Normal 43.0-75.0 [facility] Comment on above: Performed By: #### C BC #### [facility] [address] [place] [address] Dr. Vanessa Go Platelet mean volume (Bld) [Entitic vol] 9.3 fL Critically low 9.5-13.5 [facility] Comment on above: Performed By: #### C BC #### [facility] [address] [place] [address] Dr. Vanessa Go PLT 298 103/ul Normal 150-450 [facility] Comment on above: Performed By: #### C BC #### [facility] [address] [place] [address] Dr. Vanessa Go RBC 4.03 106/ul Critically low 4.20-5.40 [facility] Comment on above: Performed By: #### C BC #### [facility] [address] [place] [address] Dr. Vanessa Go WBC 9.4 103/ul Normal 4.0-11.0 [facility] Comment on above: Performed By: #### C BC #### [facility] [address] [place] [address] Dr. Vanessa Go POINT OF CARE GLUCOSEon 08-0 Glucose [Mass/Vol] 132 mg/dL Critically high 74-106 [facility] Comment on above: Performed By: #### M G, BMP #### [facility] [address] [place] [address] Dr. Vanessa Go Glucose [Mass/Vol] 106 mg/dL Normal 74-106 [facility] Comment on above: Performed By: #### M G, BMP #### [facility] [address] [place] [address] Dr. Vanessa Go PROF 14(COMP METB)on 022 Albumin [Mass/Vol] 2.9 g/dL Critically low 3.4-5.0 [facility] Comment on above: Performed By: #### H STROPN #### [facility] [address] [place] [address] Dr. Vanessa Go Albumin/Globulin [Mass ratio] 0.8 {ratio} Normal [facility] Comment on above: Performed By: #### H STROPN #### [facility] [address] [place] [address] Dr. Vanessa Go ALP [Catalytic activity/Vol] 84 U/L Normal 46-116 [facility] Comment on above: Performed By: #### H STROPN #### [facility] [address] [place] [address] Dr. Vanessa Go ALT [Catalytic activity/Vol] 16 U/L Normal 14-59 [facility] Comment on above: Performed By: #### H STROPN #### [facility] [address] [place] [address] Dr. Vanessa Go Anion gap [Moles/Vol] 10.4 mmol/L Normal [facility] Comment on above: Performed By: #### H STROPN #### [facility] [address] [place] [address] Dr. Vanessa Go AST [Catalytic activity/Vol] 14 U/L Critically low 15-37 [facility] Comment on above: Performed By: #### H STROPN #### [facility] [address] [place] [address] Dr. Vanessa Go Bilirubin [Mass/Vol] 1.0 mg/dL Normal 0.2-1.0 [facility] Comment on above: Performed By: #### H STROPN #### [facility] [address] [place] [address] Dr. Vanessa Go Calcium [Mass/Vol] 8.3 mg/dL Critically low 8.5-10.1 Th e [facility] Comment on above: Performed By: #### H STROPN #### [facility] [address] [place] [address] Dr. Vanessa Go Chloride [Moles/Vol] 97 mmol/L Critically low 98-107 [facility] Comment on above: Performed By: #### H STROPN #### [facility] [address] [place] [address] Dr. Vanessa Go CO2 [Moles/Vol] 27.2 mmol/L Normal 21.0-32.0 [facility] Comment on above: Performed By: #### H STROPN #### [facility] [address] [place] [address] Dr. Vanessa Go Creatinine [Mass/Vol] 1.00 mg/dL Normal 0.55-1.02 [facility] Comment on above: Performed By: #### H STROPN #### [facility] [address] [place] [address] Dr. Vanessa Go EGFR-AF CONGOLESE >60 Normal >=60 [facility] Comment on above: Performed By: #### H STROPN #### [facility] [address] [place] [address] Dr. Vanessa Go EGFR-NON AF CONGOLESE 52 mL/min/1.73m2 Critically low >=60 [facility] Comment on above: Performed By: #### H STROPN #### [facility] [address] [place] [address] Dr. Vanessa Go Globulin (S) [Mass/Vol] 3.6 g/dL Normal [facility] Comment on above: Performed By: #### H STROPN #### [facility] [address] [address] [address] Vanessa Go Glucose [Mass/Vol] 112 mg/dL Critically high 74-106 [facility] Comment on above: Performed By: #### H STROPN #### [facility] [address] [place] [address] Dr. Vanessa Go Potassium [Moles/Vol] 4.6 mmol/L Normal 3.5-5.1 [facility] Comment on above: Performed By: #### H STROPN #### [facility] [address] [place] [address] Dr. Vanessa Go Protein [Mass/Vol] 6.5 g/dL Normal 6.4-8.2 [facility] Comment on above: Performed By: #### H STROPN #### [facility] [address] [place] [address] Dr. Vanessa Go Sodium [Moles/Vol] 130 mmol/L Critically low 136-145 [facility] Comment on above: Performed By: #### H STROPN #### [facility] [address] [place] [address] Dr. Vanessa Go Urea nitrogen [Mass/Vol] 19.0 mg/dL Critically high 7.0-18.0 [facility] Comment on above: Performed By: #### H STROPN #### [facility] [address] [place] [address] Dr. Vanessa Go Urea nitrogen/Creatinine [Mass ratio] 19.0 mg/mg Normal [facility] Comment on above: Performed By: #### H STROPN #### [facility] [address] [place] [address] Dr. Vanessa Go BNPon 03-13-2022 Natriuretic peptide B (Bld) [Mass/Vol] 724.0 pg/mL Normal <=1,800.0 [facility] Comment on above: Performed By: #### M G, BMP #### [facility] [address] [place] [address] Dr. Vanessa Go CBC AUTO DIFFon 03-13-2022 BASO # 0.0 103/ul Normal 0.0-0.1 [facility] Comment on above: Performed By: #### C BC #### [facility] [address] [place] [address] Dr. Vanessa Go Basophils/100 WBC (Bld) 0.3 % Normal 0.2-2.0 [facility] Comment on above: Performed By: #### C BC #### [facility] [address] [place], [place] [id number] Dr. Vanessa Go EO # 0.1 103/ul Normal 0.0-0.7 [facility] Comment on above: Performed By: #### C BC #### [facility] [address] [place] [address] Dr. Vanessa Go Eosinophils/100 WBC (Bld) 1.0 % Normal 0.9-7.0 [facility] Comment on above: Performed By: #### C BC #### [facility] [address] [place] [address] Dr. Vanessa Go Erythrocyte distribution width (RBC) [Ratio] 13.9 % Normal 11.0-15.0 [facility] Comment on above: Performed By: #### C BC #### [facility] [address] [place] [address] Dr. Vanessa Go Hematocrit (Bld) [Volume fraction] 36.0 % Normal 36.0-48.0 [facility] Comment on above: Performed By: #### C BC #### [facility] [address] [place] [address] Dr. Vanessa Go Hemoglobin (Bld) [Mass/Vol] 12.0 g/dL Normal 12.0-16.0 [facility] Comment on above: Performed By: #### C BC #### [facility] [address] [place] [address] Dr. Vanessa Go IG # 0.04 10e3/ul Critically high 0.00-0.03 [facility] Comment on above: Performed By: #### C BC #### [facility] [address] [place] [address] Dr. Vanessa Go IG % 0.4 % Normal 0.0-0.5 [facility] Comment on above: Performed By: #### C BC #### [facility] [address] [place] [address] Dr. Vanessa Go LYMPH # 2.8 103/ul Normal 1.2-3.8 [facility] Comment on above: Performed By: #### C BC #### [facility] [address] [place] [address] Dr. Vanessa Go Lymphocytes/100 WBC (Bld) 30.0 % Normal 20.5-60.0 [facility] Comment on above: Performed By: #### C BC #### [facility] [address] [place] [address] Dr. Vanessa Go MANUAL DIFF REQ NO Normal [facility] Comment on above: Performed By: #### C BC #### [facility] [address] [place] [address] Dr. Vanessa Go MCH (RBC) [Entitic mass] 26.1 pg Critically low 26.7-34.0 [facility] Comment on above: Performed By: #### C BC #### [facility] [address] [place] [address] Dr. Vanessa Go MCHC (RBC) [Mass/Vol] 33.3 g/dL Normal 29.9-35.2 [facility] Comment on above: Performed By: #### C BC #### [facility] [address] [place] [address] Dr. Vanessa Go MCV (RBC) [Entitic vol] 78.3 fL Critically low 81.0-99.0 [facility] Comment on above: Performed By: #### C BC #### [facility] [address] [place] [address] Dr. Vanessa Go MONO # 1.0 103/ul Critically high 0.3-0.8 [facility] Comment on above: Performed By: #### C BC #### [facility] [address] [place] [address] Dr. Vanessa Go Monocytes/100 WBC (Bld) 10.3 % Normal 1.7-12.0 [facility] Comment on above: Performed By: #### C BC #### [facility] [address] [place] [address] Dr. Vanessa Go NEUT # 5.4 103/ul Normal 1.4-6.5 [facility] Comment on above: Performed By: #### C BC #### [facility] [address] [place] [address] Dr. Vanessa Go Neutrophils/100 WBC (Bld) 58.0 % Normal 43.0-75.0 [facility] Comment on above: Performed By: #### C BC #### [facility] [address] [place] [address] Dr. Vanessa Go Platelet mean volume (Bld) [Entitic vol] 9.5 fL Normal 9.5-13.5 [facility] Comment on above: Performed By: #### C BC #### [facility] [address] [place] [address] Dr. Vanessa Go PLT 368 103/ul Normal 150-450 [facility] Comment on above: Performed By: #### C BC #### [facility] [address] [place] [address] Dr. Vanessa Go RBC 4.60 106/ul Normal 4.20-5.40 [facility] Comment on above: Performed By: #### C BC #### [facility] [address] [place] [address] Dr. Vanessa Go WBC 9.3 103/ul Normal 4.0-11.0 [facility] Comment on above: Performed By: #### C BC #### [facility] [address] [place] [address] Dr. Vanessa Go Covid-19 PCR ([facility])on SARS-CoV-2 (COVID-19) RNA MITCHELL+probe Ql (Unsp spec) Not detected Normal NOT DETECTED [facility] Comment on above: Result Comment: When diagnostic testing is negative, the possibility of a false negative should be considered in the context of a patient's recent exposures and the presence of clinical signs and symptoms consistent with SARS-CoV-2. This test is not yet approved or cleared by the [place] FDA. When there are no FDA-approved or cleared tests available, and other criteria are met, FDA can make tests available under an emergency access mechanism called an Emergency Use Authorization (EUA). The EUA for this test is supported by the [employer] of Health and Human Service's declaration that circumstances exist to justify the emergency use of in vitro diagnostics for the detection and/or diagnosis of the virus that causes COVID-19. This EUA will remain in effect for the duration of the COVID-19 declaration justifying emergency of IVDs, unless it is terminated or revoked by the FDA (after which the test may no longer be used). Performed By: #### C BC #### [facility] [address] [place] [address] Dr. Vanessa Go POINT OF CARE GLUCOSEon Glucose [Mass/Vol] 186 mg/dL Critically high 74-106 T [facility] Comment on above: Performed By: #### C BC #### [facility] [address] [place] [address] Dr. Vanessa Go PROF 14(COMP METB)on 022 Albumin [Mass/Vol] 3.9 g/dL Normal 3.4-5.0 [facility] Comment on above: Performed By: #### M G, BMP #### [facility] [address] [place] [address] Dr. Vanessa Go Albumin/Globulin [Mass ratio] 0.9 {ratio} Normal [facility] Comment on above: Performed By: #### M G, BMP #### [facility] [address] [place] [address] Dr. Vanessa Go ALP [Catalytic activity/Vol] 111 U/L Normal 46-116 [facility] Comment on above: Performed By: #### M G, BMP #### [facility] [address] [place] [address] Dr. Vanessa Go ALT [Catalytic activity/Vol] 22 U/L Normal 14-59 [facility] Comment on above: Performed By: #### M G, BMP #### [facility] [address] [place] [address] Dr. Vanessa Go Anion gap [Moles/Vol] 15.0 mmol/L Normal [facility] Comment on above: Performed By: #### M G, BMP #### [facility] [address] [place] [address] Dr. Vanessa Go AST [Catalytic activity/Vol] 17 U/L Normal 15-37 [facility] Comment on above: Performed By: #### M G, BMP #### [facility] [address] [address] [address] Vanessa Go Bilirubin [Mass/Vol] 0.9 mg/dL Normal 0.2-1.0 [facility] Comment on above: Performed By: #### M G, BMP #### [facility] [address] [address] [address] Vanessa Go Calcium [Mass/Vol] 9.3 mg/dL Normal 8.5-10.1 [facility] Comment on above: Performed By: #### M G, BMP #### [facility] [address] [address] [address] Vanessa Go Chloride [Moles/Vol] 92 mmol/L Critically low 98-107 [facility] Comment on above: Performed By: #### M G, BMP #### [facility] [address] [place] [address] Dr. Vanessa Go CO2 [Moles/Vol] 25.2 mmol/L Normal 21.0-32.0 [facility] Comment on above: Performed By: #### M G, BMP #### [facility] [address] [place] [address] Dr. Vanessa Go Creatinine [Mass/Vol] 1.11 mg/dL Critically high 0.55-1.02 [facility] Comment on above: Performed By: #### M G, BMP #### [facility] [address] [place] [address] Dr. Vanessa Go EGFR-AF CONGOLESE 56 mL/min/1.73m2 Critically low >=60 [facility] Comment on above: Performed By: #### M G, BMP #### [facility] [address] [place] [address] Dr. Vanessa Go EGFR-NON AF CONGOLESE 46 mL/min/1.73m2 Critically low >=60 [facility] Comment on above: Performed By: #### M G, BMP #### [facility] [address] [place] [address] Dr. Vanessa Go Globulin (S) [Mass/Vol] 4.3 g/dL Normal [facility] Comment on above: Performed By: #### M G, BMP #### [facility] [address] [address] [address] Vanessa Go Glucose [Mass/Vol] 156 mg/dL Critically high 74-106 [facility] Comment on above: Performed By: #### M G, BMP #### [facility] [address] [address] [address] Vanessa Go Potassium [Moles/Vol] 4.2 mmol/L Normal 3.5-5.1 [facility] Comment on above: Performed By: #### M G, BMP #### [facility] [address] [address] [address] Vanessa Go Protein [Mass/Vol] 8.2 g/dL Normal 6.4-8.2 [facility] Comment on above: Performed By: #### M G, BMP #### [facility] [address] [address] [address] Vanessa Go Sodium [Moles/Vol] 128 mmol/L Critically low 136-145 [facility] Comment on above: Performed By: #### M G, BMP #### [facility] [address] [address] [address] Vanessa Go Urea nitrogen [Mass/Vol] 22.0 mg/dL Critically high 7.0-18.0 [facility] Comment on above: Performed By: #### M G, BMP #### [facility] [address] [address] [address] Vanessa Go Urea nitrogen/Creatinine [Mass ratio] 19.8 mg/mg Normal [facility] Comment on above: Performed By: #### M G, BMP #### [facility] [address] [address] [address] Vanessa Go PROTIMEon 03-13-2022 INR Coag (PPP) [Relative time] 2.70 {INR} Normal [facility] Comment on above: Performed By: #### C BC #### [facility] [address] [address] [address] Vanessa Go INR GUIDELINES SEE BELOW Normal [facility] Comment on above: Result Comment: GINO RED INR: 2.0 - 3.0 CONDITIONS NOT LISTED BELOW 2.5 - 3.5 FOR PROSTHETIC HEART VALVE REPLACEMENT 2.5 - 3.5 RECURRENT THROMBOSIS Performed By: #### C BC #### [facility] [address] [place] [address] Dr. Vanessa Go PT Coag (PPP) [Time] 27.3 s Critically high 9.0-11.6 [facility] Comment on above: Performed By: #### C BC #### [facility] [address] [place] [address] Dr. Vanessa Go PTTon 03-13-2022 aPTT Coag (Bld) [Time] 66.2 s Critically high 22.3-36.2 [facility] Comment on above: Performed By: #### C BC #### [facility] [address] [place] [address] Dr. Vanessa Go TROPONIN, HIGH SENSITIVITYon 03-13-2022 HSTROP 6.2 pg/mL Normal 4.0-51.3 [facility] Comment on above: Result Comment: CUT- OFF POINTS HAVE BEEN ESTABLISHED BASED ON THE FOURTH UNIVERSAL DEFINITIONS OF MYOCARDIAL INFARCTION. THE UPPER REFERENCE LIMIT (URL) OF TROPONIN, DEFINED THE 99TH PERCENTILE OF cTnI DISTRIBUTION IN A REFERENCE POPULATION, HAS BEEN CONFIRMED THE DECISION THRESHOLD FOR MD DIAGNOSIS. Performed By: #### H STROPN #### [facility] [address] [place] [address] Dr. Vanessa Go HSTROP 6.6 pg/mL Normal 4.0-51.3 [facility] Comment on above: Result Comment: CUT- OFF POINTS HAVE BEEN ESTABLISHED BASED ON THE FOURTH UNIVERSAL DEFINITIONS OF MYOCARDIAL INFARCTION. THE UPPER REFERENCE LIMIT (URL) OF TROPONIN, DEFINED THE 99TH PERCENTILE OF cTnI DISTRIBUTION IN A REFERENCE POPULATION, HAS BEEN CONFIRMED THE DECISION THRESHOLD FOR MD DIAGNOSIS. Performed By: #### M G, BMP #### [facility] [address] [place] [address] Dr. Vanessa Go XR CHEST 1 Von 03-13-2022 XR CHEST 1 V EXAMINATION: XR CHES T 1 V HISTORY: CHEST PAIN, UNSPECIFIED COMPARISON: XR chest 06/06/2021 FINDINGS: LUNGS: Mild opacity partially obscuring the lateral left lung base. Right lung is clear. VASCULATURE: No increased pulmonary vasculature. PLEURA: No pneumothorax, effusion, or pleural thickening. CARDIAC: Cardiomegaly. MEDIASTINUM: No visible mass or adenopathy. BONES: Kyphoscoliosis. OTHER: Negative. IMPRESSION: 1. Cardiomegaly, suspected to have slightly increased even allowing for differences in technique. 2. Mild lingular infiltrates versus atelectasis. Electronically authenticated by: SHIRLEY GOMEZ Date: 2022-03-13 14:54 Normal [facility] Vital Signs Date Time Vital Sign Value Performing Clinician Meseret krishna 06-26-2024 10:38-0500 Blood Pressure Location Rakan MCGEE [facility] 06-26-2024 10:38-0500 Body temperature 98.6 [degF] Rakan MCGEE [facility] 06-26-2024 10:38-0500 Diastolic blood pressure 64 mm[Hg] Rakan MCGEE [facility] 06-26-2024 10:38-0500 Heart rate 61 /min Rakan MCGEE [facility] 06-26-2024 10:38-0500 Respiratory rate 16 /min Rakan MCGEE [facility] 06-26-2024 10:38-0500 Systolic blood pressure 122 mm[Hg] Rakan MCGEE [facility] 06-21-2023 10:58-0500 Blood Pressure Location Rakan MCGEE [facility] 06-21-2023 10:58-0500 Diastolic blood pressure 76 mm[Hg] Rakan MCGEE [facility] 06-21-2023 10:58-0500 Heart rate 56 /min Rakan MCGEE [facility] 06-21-2023 10:58-0500 Respiratory rate 16 /min Rakan MCGEE [facility] 06-21-2023 10:58-0500 Systolic blood pressure 128 mm[Hg] Rakan MCGEE [facility] 04-09-2023 14:09-0400 Diastolic blood pressure 46 mm[Hg] ANNY JOAQUÍN [facility] 04-09-2023 14:09-0400 Heart rate 63 /min ANNY JOAQUÍN [facility] 04-09-2023 14:09-0400 Systolic blood pressure 118 mm[Hg] ANNY JOAQUÍN [facility] 09-10-2022 09:56-0500 Blood Pressure Location Rakan MCGEE [facility] 09-10-2022 09:56-0500 Diastolic blood pressure 66 mm[Hg] Rakan MCEGE [facility] 09-10-2022 09:56-0500 Heart rate 70 /min Rakan MCGEE [facility] 09-10-2022 09:56-0500 Respiratory rate 16 /min Rakan MCGEE [facility] 09-10-2022 09:56-0500 Systolic blood pressure 140 mm[Hg] Rakan MCGEE [facility] Encounters Encounter Date Encounter Type Care Provider Facility Start: 06-26-2024 End: 06-26-2024 ambulatory Rakan MCGEE Facility:[facility] Start: 06-26-2024 End: 06-26-2024 Patient encounter procedure Rakan MCGEE [facility] Start: 06-21-2023 End: 06-21-2023 Patient encounter procedure Rakan MCGEE [facility] Start: 04-19-2023 End: 04-19-2023 Patient encounter procedure Trisha Osorio [facility] Start: 04-09-2023 End: 04-09-2023 Patient encounter procedure ANNY Asya YANES [facility] Start: 12-07-2022 End: 12-10-2022 Evaluation and management of inpatient DR TRISHA OSORIO . Facility:[facility] Start: 09-28-[address] TRISHA OSORIO . Facili ty:[facility] Start: 09-27-2022 End: 09-27-[address] RAKAN MCGEE . Facility:[facility] Start: 09-24-2022 Encounter for preprocedural cardiovascular examination DR TRISHA OSORIO . [facility] Start: 09-24-2022 Encounter for preprocedural laboratory examination DR RAKAN MCGEE . [facility] Start: 09-21-2022 End: 09-22-[address] TRISHA OSORIO . Facility:[facility] Start: 09-20-2022 End: 09-21-[address] TRISHA OSORIO . Facility:[facility] Start: 09-20-2022 End: 09-21-2022 Encounter for preprocedural cardiovascular examination DR TRISHA OSORIO . Facility:[facility] Start: 09-20-2022 End: 09-21-[address] RAKAN MCGEE . Facility:[facility] Start: 09-20-2022 End: 09-21-2022 Encounter for preprocedural laboratory examination DR RAKAN MCGEE . Facility:[facility] Start: 09-10-2022 End: 09-10-2022 Patient encounter procedure Rakan MCGEE [facility] Start: 05-19-2022 End: 05-21-[address] TRISHA OSORIO . Facility:[facility] Start: 04-14-2022 End: 04-18-2022 ambulatory UNKNOWN PROVIDER Facility:[facility] Start: 03-13-2022 End: 03-14-[address] EARLINE CARDOZO . Facility: Start: 02-28-2017 End: 03-01-2017 Ambulatory DEFAULT PHYSICIAN Facility:[facility] Procedures Date Procedure Procedure Detail Performing Clinician Start: 05-19-2022 Cystoscopic insertio n of ureteric stent Rakan MCGEE Cardiac ablation sys tem (physical object) Rakan MCGEE Hysterectomy Rakan MCGEE Ligation of fallopian tube P elke MCGEE Immunizations Immunization Date Immunization Notes Care Provider Apolinar scott 03-06-2022 SARS-CoV-2 (COVID-19 ) mRNA BNT-162b2 vax Rakan MCGEE [facility] 06-20-2021 SARS-CoV-2 (COVID-19 ) mRNA BNT-162b2 vax Rakan MCGEE [facility] 09-28-2020 SARS-CoV-2 (COVID-19 ) mRNA BNT-162b2 vax Rakan MCGEE [facility] 09-05-2020 SARS-CoV-2 (COVID-19 ) mRNA BNT-162b2 vax Rakan MCGEE [facility] 05-18-2019 influenza virus vacc ine, unspecified formulation Rakan MCGEE [facility] 05-26-2018 influenza virus vacc ine, unspecified formulation Rakan MCGEE [facility] 05-28-2017 influenza virus vacc ine, unspecified formulation Rakan MCGEE [facility] 06-12-2016 pneumococcal polysaccharide vaccine, 23 valent Rakan MCGEE [facility] 04-25-2015 influenza virus vacc ine, unspecified formulation Rakan MCGEE [facility] 06-12-2005 influenza, whole Rakan DUNCAN DENT [facility] Payers Date Payer Category Payer Medicare [id number] 1960 Medicare [id number] 1960 Medicare [id number] 1960 Medicare [id number] 1935 Unknown [id number] 2.. [id number] 1934 Unknown [id number] 2.16.84 [id number] 1934 Unknown [id number] 2.16.84 [id number] 1934 Unknown [id number] 2.16.84 [id number] 1934 Unknown [id number] 2.16.84 [id number] 1934 Unknown [id number] 2.16.84 [id number] 1934 Unknown [id number] 2.16.84 [id number] 1934 Unknown [id number] 2.16.84 [id number] 1934 Unknown [id number] 2.16.84 [id number] 1934 Unknown [id number] 2.16.8 [id number] Unknown Social History Date Type Detail Facility Start: 09-10-2022 End: 06-26-2024 Tobacco smoking status Never smoked tobacco (finding) [facility] Tobacco smoking status Never [facility] Sex Assigned At Female [facility] Functional Status Date Assessment Result Facility 06-26-2024 Functional Status N/A [facility] 06-21-2023 Functional Status N/A [facility] 04-09-2023 Functional Status N/A [facility] 09-10-2022 Functional Status N/A [facility] Hospital Discharge instructions 06-26-2024 Note Date & Type Note Facility 06-26-2024 Hospital Discharg e instructions Patient Education 06/26/2024 11:45:05 Dietary Guidelines to Help Prevent Kidney Stones Dietary Guidelines to Help Prevent Kidney Stones Kidney stones are deposits of minerals and salts that form inside your kidneys. Your risk of developing kidney stones may be greater depending on your diet, your lifestyle, the medicines you take, and whether you have certain medical conditions. Most people can lower their risks of developing kidney stones by following these dietary guidelines. Your dietitian may give you more specific instructions depending on your overall health and the type of kidney stones you tend to develop. What are tips for following this plan? Reading food labels Choose foods with no salt added or low-salt labels. Limit your salt (sodium) intake to less than 1,500 mg a day. Choose foods with calcium for each meal and snack. Try to eat about 300 mg of calcium at each meal. Foods that contain 200 500 mg of calcium a serving include: ?8 oz (237 mL) of milk, qgfxddp-djmiwxrosnox-wfzdb milk, and calcium-fortifiedfruit juice. Calcium-fortified means that calcium has been added to these drinks. ?8 oz (237 mL) of kefir, yogurt, and soy yogurt. ?4 oz (114 g) of tofu. ?1 oz (28 g) of cheese. ?1 cup (150 g) of dried figs. ?1 cup (91 g) of cooked broccoli. ?One 3 oz (85 g) can of sardines or mackerel. Most people need 1,000 1,500 mg of calcium a day. Talk to your dietitian about how much calcium is recommended for you. Shopping Buy plenty of fresh fruits and vegetables. Most people do not need to avoid fruits and vegetables, even if these foods contain nutrients that may contribute to kidney stones. When shopping for convenience foods, choose: ?Whole pieces of fruit. ?Pre-made salads with dressing on the side. ?Low-fat fruit and yogurt smoothies. Avoid buying frozen meals or prepared deli foods. These can be high in sodium. Look for foods with live cultures, such as yogurt and kefir. Choose high-fiber grains, such as whole-wheat breads, oat bran, and wheat cereals. Cooking Do not add salt to food when cooking. Place a salt shaker on the table and allow each person to add their own salt to taste. Use vegetable protein, such as beans, textured vegetable protein (TVP), or tofu, instead of meat in pasta, casseroles, and soups. Meal planning Eat less salt, if told by your dietitian. To do this: ?Avoid eating processed or pre-made food. ?Avoid eating fast food. Eat less animal protein, including cheese, meat, poultry, or fish, if told by your dietitian. To do this: ?Limit the number of times you have meat, poultry, fish, or cheese each week. Eat a diet free of meat at least 2 days a week. ?Eat only one serving each day of meat, poultry, fish, or seafood. ?When you prepare animal proteins, cut pieces into small portion sizes. For most meat and fish, one serving is about the size of the palm of your hand. Eat at least five servings of fresh fruits and vegetables each day. To do this: ?Keep fruits and vegetables on hand for snacks. ?Eat one piece of fruit or a handful of berries with breakfast. ?Have a salad and fruit at lunch. ?Have two kinds of vegetables at dinner. You may be told to limit foods that are high in a substance called oxalate. These include: ?Spinach (cooked), rhubarb, beets, sweet potatoes, and Swazi chard. ?Peanuts. ?Potato chips, portuguese fries, and baked potatoes with skin on. ?Nuts and nut products. ?Chocolate. If you regularly take a diuretic medicine, make sure to eat at least 1 or 2 servings of fruits or vegetables that are high in potassium each day. These include: ?Avocado. ?Banana. ?[place], prune, carrot, or tomato juice. ?Baked potato. ?Cabbage. ?Beans and split peas. Lifestyle Drink enough fluid to keep your urine pale yellow. This is the most important thing you can do. Spread your fluid intake throughout the day. If you drink alcohol: ?Limit how much you have to: ?0 1 drink a day for women who are not . ?0 2 drinks a day for men. ?Know how much alcohol is in your drink. In the [place] one drink equals one 12 oz bottle of beer (355 mL), one 5 oz glass of wine (148 mL), or one 1 oz glass of hard liquor (44 mL). Lose weight if told by your health care provider. Work with your dietitian to find an eating plan and weight loss strategies that work best for you. General information Talk to your health care provider and dietitian about taking daily supplements. Depending on your health and the cause of your kidney stones, you may be told: ?Do not take high-dose supplements of vitamin C (1,000 mg a day or more). ?To take a calcium supplement. ?To take a daily probiotic supplement. ?To take other supplements such as magnesium, fish oil, or vitamin B6. Take rkcj-tfx-rswomdx and prescription medicines only as told by your health care provider. These include supplements. What foods should I limit? Limit your intake of the following foods, or eat them as told by your dietitian. Vegetables Spinach. Rhubarb. Beets. Canned vegetables. Pickles. Olives. Baked potatoes with skin. Grains Wheat bran. Baked goods. Salted crackers. Cereals high in sugar. Meats and other proteins Nuts. Nut butters. Large portions of meat, poultry, or fish. Salted, precooked, or cured meats, such as sausages, meat loaves, and hot dogs. Dairy Cheeses. Beverages Regular soft drinks. Regular vegetable juice. Seasonings and condiments Seasoning blends with salt. Salad dressings. Soy sauce. Ketchup. Barbecue sauce. Other foods Canned soups. Canned pasta sauce. Casseroles. Pizza. Lasagna. Frozen meals. Potato chips. [place] fries. The items listed above may not be a complete list of foods and beverages you should limit. Contact a dietitian for more information. What foods should I avoid? Talk to your dietitian about specific foods you should avoid based on the type of kidney stones you have and your overall health. Fruits Grapefruit. The item listed above may not be a complete list of foods and beverages you should avoid. Contact a dietitian for more information. Summary Kidney stones are deposits of minerals and salts that form inside your kidneys. You can lower your risk of kidney stones by making changes to your diet. The most important thing you can do is drink enough fluid. Drink enough fluid to keep your urine pale yellow. Talk to your dietitian about how much calcium you should have each day, and eat less salt and animal protein as told by your dietitian. This information is not intended to replace advice given to you by your health care provider. Make sure you discuss any questions you have with your health care provider. Document Revised: 11/08/2022 Document Reviewed: 11/08/2022 [employer] Patient Education 2023 [employer]. Follow Up Care 06/21/2023 11:54:19 With:TERESA BENDER, Rakan Cummings, URL Address: [facility] [address] , [place] [address]- When: Unknown Comments:Pending US Results. [facility] Clinical Note 06-26-2024 Note Date & Type Note Facility 06-26-2024 Note Patient Education Nephrology Dietary Guidelines to Help Prevent Kidney Stones Kidney stones are deposits of minerals and salts that form inside your kidneys. Your risk of developing kidney stones may be greater depending on your diet, your lifestyle, the medicines you take, and whether you have certain medical conditions. Most people can lower their risks of developing kidney stones by following these dietary guidelines. Your dietitian may give you more specific instructions depending on your overall health and the type of kidney stones you tend to develop. What are tips for following this plan? Reading food labels ??? Choose foods with no salt added or low-salt labels. Limit your salt (sodium) intake to less than 1,500 mg a day. ??? Choose foods with calcium for each meal and snack. Try to eat about 300 mg of calcium at each meal. Foods that contain 200?500 mg of calcium a serving include: ? 8 oz (237 mL) of milk, janktoj-htoxauhyaine-zrpyq milk, and calcium-fortifiedfruit juice. Calcium-fortified means that calcium has been added to these drinks. ? 8 oz (237 mL) of kefir, yogurt, and soy yogurt. ? 4 oz (114 g) of tofu. ? 1 oz (28 g) of cheese. ? 1 cup (150 g) of dried figs. ? 1 cup (91 g) of cooked broccoli. ? One 3 oz (85 g) can of sardines or mackerel. Most people need 1,000?1,500 mg of calcium a day. Talk to your dietitian about how much calcium is recommended for you. Shopping ??? Buy plenty of fresh fruits and vegetables. Most people do not need to avoid fruits and vegetables, even if these foods contain nutrients that may contribute to kidney stones. ??? When shopping for convenience foods, choose: ? Whole pieces of fruit. ? Pre-made salads with dressing on the side. ? Low-fat fruit and yogurt smoothies. ??? Avoid buying frozen meals or prepared deli foods. These can be high in sodium. ??? Look for foods with live cultures, such as yogurt and kefir. ??? Choose high-fiber grains, such as whole-wheat breads, oat bran, and wheat cereals. Cooking ??? Do not add salt to food when cooking. Place a salt shaker on the table and allow each person to add their own salt to taste. ??? Use vegetable protein, such as beans, textured vegetable protein (TVP), or tofu, instead of meat in pasta, casseroles, and soups. Meal planning ??? Eat less salt, if told by your dietitian. To do this: ? Avoid eating processed or pre-made food. ? Avoid eating fast food. ??? Eat less animal protein, including cheese, meat, poultry, or fish, if told by your dietitian. To do this: ? Limit the number of times you have meat, poultry, fish, or cheese each week. Eat a diet free of meat at least 2 days a week. ? Eat only one serving each day of meat, poultry, fish, or seafood. ? When you prepare animal proteins, cut pieces into small portion sizes. For most meat and fish, one serving is about the size of the palm of your hand. ??? Eat at least five servings of fresh fruits and vegetables each day. To do this: ? Keep fruits and vegetables on hand for snacks. ? Eat one piece of fruit or a handful of berries with breakfast. ? Have a salad and fruit at lunch. ? Have two kinds of vegetables at dinner. ??? You may be told to limit foods that are high in a substance called oxalate. These include: ? Spinach (cooked), rhubarb, beets, sweet potatoes, and [place] chard. ? Peanuts. ? Potato chips, portuguese fries, and baked potatoes with skin on. ? Nuts and nut products. ? Chocolate. ??? If you regularly take a diuretic medicine, make sure to eat at least 1 or 2 servings of fruits or vegetables that are high in potassium each day. These include: ? Avocado. ? Banana. ? [place], prune, carrot, or tomato juice. ? Baked potato. ? Cabbage. ? Beans and split peas. Lifestyle ??? Drink enough fluid to keep your urine pale yellow. This is the most important thing you can do. Spread your fluid intake throughout the day. ??? If you drink alcohol: ? Limit how much you have to: ? 0?1 drink a day for women who are not . ? 0?2 drinks a day for men. ? Know how much alcohol is in your drink. In the [place] one drink equals one 12 oz bottle of beer (355 mL), one 5 oz glass of wine (148 mL), or one 1? oz glass of hard liquor (44 mL). ??? Lose weight if told by your health care provider. Work with your dietitian to find an eating plan and weight loss strategies that work best for you. General information ??? Talk to your health care provider and dietitian about taking daily supplements. Depending on your health and the cause of your kidney stones, you may be told: ? Do not take high-dose supplements of vitamin C (1,000 mg a day or more). ? To take a calcium supplement. ? To take a daily probiotic supplement. ? To take other supplements such as magnesium, fish oil, or vitamin B6. ??? Take zlge-eml-zgqyjod and prescription medicines only as told by your health (more content not included)... [facility] Hospital Discharge instructions 06-21-2023 Note Date & Type Note Facility 06-21-2023 Hospital Discharg e instructions Patient Education 06/21/2023 11:49:21 Dietary Guidelines to Help Prevent Kidney Stones Dietary Guidelines to Help Prevent Kidney Stones Kidney stones are deposits of minerals and salts that form inside your kidneys. Your risk of developing kidney stones may be greater depending on your diet, your lifestyle, the medicines you take, and whether you have certain medical conditions. Most people can lower their chances of developing kidney stones by following the instructions below. Your dietitian may give you more specific instructions depending on your overall health and the type of kidney stones you tend to develop. What are tips for following this plan? Reading food labels Choose foods with no salt added or low-salt labels. Limit your salt (sodium) intake to less than 1,500 mg a day. Choose foods with calcium for each meal and snack. Try to eat about 300 mg of calcium at each meal. Foods that contain 200 500 mg of calcium a serving include: ?8 oz (237 mL) of milk, pbvxzmf-fplsmsggishq-zvjmj milk, and calcium-fortifiedfruit juice. Calcium-fortified means that calcium has been added to these drinks. ?8 oz (237 mL) of kefir, yogurt, and soy yogurt. ?4 oz (114 g) of tofu. ?1 oz (28 g) of cheese. ?1 cup (150 g) of dried figs. ?1 cup (91 g) of cooked broccoli. ?One 3 oz (85 g) can of sardines or mackerel. Most people need 1,000 1,500 mg of calcium a day. Talk to your dietitian about how much calcium is recommended for you. Shopping Buy plenty of fresh fruits and vegetables. Most people do not need to avoid fruits and vegetables, even if these foods contain nutrients that may contribute to kidney stones. When shopping for convenience foods, choose: ?Whole pieces of fruit. ?Pre-made salads with dressing on the side. ?Low-fat fruit and yogurt smoothies. Avoid buying frozen meals or prepared deli foods. These can be high in sodium. Look for foods with live cultures, such as yogurt and kefir. Choose high-fiber grains, such as whole-wheat breads, oat bran, and wheat cereals. Cooking Do not add salt to food when cooking. Place a salt shaker on the table and allow each person to add his or her own salt to taste. Use vegetable protein, such as beans, textured vegetable protein (TVP), or tofu, instead of meat in pasta, casseroles, and soups. Meal planning Eat less salt, if told by your dietitian. To do this: ?Avoid eating processed or pre-made food. ?Avoid eating fast food. Eat less animal protein, including cheese, meat, poultry, or fish, if told by your dietitian. To do this: ?Limit the number of times you have meat, poultry, fish, or cheese each week. Eat a diet free of meat at least 2 days a week. ?Eat only one serving each day of meat, poultry, fish, or seafood. ?When you prepare animal protein, cut pieces into small portion sizes. For most meat and fish, one serving is about the size of the palm of your hand. Eat at least five servings of fresh fruits and vegetables each day. To do this: ?Keep fruits and vegetables on hand for snacks. ?Eat one piece of fruit or a handful of berries with breakfast. ?Have a salad and fruit at lunch. ?Have two kinds of vegetables at dinner. Limit foods that are high in a substance called oxalate. These include: ?Spinach (cooked), rhubarb, beets, sweet potatoes, and [place] chard. ?Peanuts. ?Potato chips, portuguese fries, and baked potatoes with skin on. ?Nuts and nut products. ?Chocolate. If you regularly take a diuretic medicine, make sure to eat at least 1 or 2 servings of fruits or vegetables that are high in potassium each day. These include: ?Avocado. ?Banana. ?[place], prune, carrot, or tomato juice. ?Baked potato. ?Cabbage. ?Beans and split peas. Lifestyle Drink enough fluid to keep your urine pale yellow. This is the most important thing you can do. Spread your fluid intake throughout the day. If you drink alcohol: ?Limit how much you use to: ?0 1 drink a day for women who are not . ?0 2 drinks a day for men. ?Be aware of how much alcohol is in your drink. In the [place] one drink equals one 12 oz bottle of beer (355 mL), one 5 oz glass of wine (148 mL), or one 1 oz glass of hard liquor (44 mL). Lose weight if told by your health care provider. Work with your dietitian to find an eating plan and weight loss strategies that work best for you. General information Talk to your health care provider and dietitian about taking daily supplements. You may be told the following depending on your health and the cause of your kidney stones: ?Not to take supplements with vitamin C. ?To take a calcium supplement. ?To take a daily probiotic supplement. ?To take other supplements such as magnesium, fish oil, or vitamin B6. Take pyma-rzv-guztqyh and prescription medicines only as told by your health care provider. These include supplements. What foods should I limit? Limit your intake of the following foods, or eat them as told by your dietitian. Vegetables Spinach. Rhubarb. Beets. Canned vegetables. Pickles. Olives. Baked potatoes with skin. Grains Wheat bran. Baked goods. Salted crackers. Cereals high in sugar. Meats and other proteins Nuts. Nut butters. Large portions of meat, poultry, or fish. Salted, precooked, or cured meats, such as sausages, meat loaves, and hot dogs. Dairy Cheese. Beverages Regular soft drinks. Regular vegetable juice. Seasonings and condiments Seasoning blends with salt. Salad dressings. Soy sauce. Ketchup. Barbecue sauce. Other foods Canned soups. Canned pasta sauce. Casseroles. Pizza. Lasagna. Frozen meals. Potato chips. [place] fries. The items listed above may not be a complete list of foods and beverages you should limit. Contact a dietitian for more information. What foods should I avoid? Talk to your dietitian about specific foods you should avoid based on the type of kidney stones you have and your overall health. Fruits Grapefruit. The item listed above may not be a complete list of foods and beverages you should avoid. Contact a dietitian for more information. Summary Kidney stones are deposits of minerals and salts that form inside your kidneys. You can lower your risk of kidney stones by making changes to your diet. The most important thing you can do is drink enough fluid. Drink enough fluid to keep your urine pale yellow. Talk to your dietitian about how much calcium you should have each day, and eat less salt and animal protein as told by your dietitian. This information is not intended to replace advice given to you by your health care provider. Make sure you discuss any questions you have with your health care provider. Document Revised: 04/09/2022 Document Reviewed: 04/09/2022 [employer] Patient Education 2022 [employer]. Follow Up Care 04/19/2023 11:37:38 With:TERSEA BENDER, Rkaan Cummings, URL Address: [facility] [address] [place] [phone] When: Unknown Comments:1 yr w/ AISHA [facility] Hospital Discharge instructions 04-09-2023 Note Date & Type Note Facility 04-09-2023 Hospital Discharg e instructions Patient Education 04/09/2023 14:28:20 Dysuria Dysuria Dysuria is pain or discomfort during urination. The pain or discomfort may be felt in the part of the body that drains urine from the bladder (urethra) or in the surrounding tissue of the genitals. The pain may also be felt in the groin area, lower abdomen, or lower back. You may have to urinate frequently or have the sudden feeling that you have to urinate (urgency). Dysuria can affect anyone, but it is more common in females. Dysuria can be caused by many different things, including: Urinary tract infection. Kidney stones or bladder stones. Certain STIs (sexually transmitted infections), such as chlamydia. Dehydration. Inflammation of the tissues of the vagina. Use of certain medicines. Use of certain soaps or scented products that cause irritation. Follow these instructions at home: Medicines Take mjmq-zvr-niywwcm and prescription medicines only as told by your health care provider. If you were prescribed an antibiotic medicine, take it as told by your health care provider. Do not stop taking the antibiotic even if you start to feel better. Eating and drinking Drink enough fluid to keep your urine pale yellow. Avoid caffeinated beverages, tea, and alcohol. These beverages can irritate the bladder and make dysuria worse. In males, alcohol may irritate the prostate. General instructions Watch your condition for any changes. Urinate often. Avoid holding urine for long periods of time. If you are female, you should wipe from front to back after urinating or having a bowel movement. Use each piece of toilet paper only once. Empty your bladder after sex. Keep all follow-up visits. This is important. If you had any tests done to find the cause of dysuria, it is up to you to get your test results. Ask your health care provider, or the department that is doing the test, when your results will be ready. Contact a health care provider if: You have a fever. You develop pain in your back or sides. You have nausea or vomiting. You have blood in your urine. You are not urinating as often as you usually do. Get help right away if: Your pain is severe and not relieved with medicines. You cannot eat or drink without vomiting. You are confused. You have a rapid heartbeat while resting. You have shaking or chills. You feel extremely weak. Summary Dysuria is pain or discomfort while urinating. Many different conditions can lead to dysuria. If you have dysuria, you may have to urinate frequently or have the sudden feeling that you have to urinate (urgency). Watch your condition for any changes. Keep all follow-up visits. Make sure that you urinate often and drink enough fluid to keep your urine pale yellow. This information is not intended to replace advice given to you by your health care provider. Make sure you discuss any questions you have with your health care provider. Document Revised: 03/10/2021 Document Reviewed: 03/10/2021 [employer] Patient Education 2022 [employer]. Follow Up Care 02/19/2023 14:00:33 With:ANNY YANES PA-C, URL Address: [address] [place] [address] When: Unknown [facility] Hospital Discharge instructions 09-10-2022 Note Date & Type Note Facility 09-10-2022 Hospital Discharg e instructions Patient Education 09/10/2022 10:29:21 Hydronephrosis Hydronephrosis Hydronephrosis is the swelling of one or both kidneys due to a blockage that stops urine from flowing out of the body. Kidneys filter waste from the blood and produce urine. This condition can lead to kidney failure and may become life threatening if not treated promptly. What are the causes? Common causes of this condition include: Problems that occur when a baby is developing in the womb (congenital defect). These can include problems: ?In the kidneys. ?In the tubes that drain urine from the kidneys into the bladder (ureters). Kidney stones. Bladder infection. An enlarged prostate gland. Scar tissue from a previous surgery or injury. A blood clot. A tumor or cyst in the abdomen or pelvis. Cancer of the prostate, bladder, uterus, ovary, or colon. What are the signs or symptoms? Symptoms of this condition include: Pain or discomfort in your side (flank). Pain and swelling in your abdomen. Nausea and vomiting. Fever. Pain when passing urine. Feelings of urgency when you need to urinate. Urinating more often than normal. In some cases, you may not have any symptoms. How is this diagnosed? This condition may be diagnosed based on: Your symptoms and medical history. A physical exam. Blood and urine tests. Imaging tests, such as an ultrasound, CT scan, or MRI. A procedure in which a scope is inserted into the urethra and used to view parts of the urinary tract and bladder (cystoscopy). How is this treated? Treatment for this condition depends on where the blockage is, how long it has been there, and what caused it. The goal of treatment is to remove the blockage. Treatment may include: Antibiotic medicines to treat or prevent infection. A procedure to place a small, thin tube (stent) into a blocked ureter. The stent will keep the ureter open so that urine can drain through it. A nonsurgical procedure that crushes kidney stones with shock waves (extracorporeal shock wave lithotripsy). If kidney failure occurs, treatment may include dialysis or a kidney transplant. Follow these instructions at home: Take kyxf-cnn-mvcvtev and prescription medicines only as told by your health care provider. Rest and return to your normal activities as told by your health care provider. Ask your health care provider what activities are safe for you. Drink enough fluid to keep your urine pale yellow. If you were prescribed an antibiotic medicine, take it exactly as told by your health care provider. Do not stop taking the antibiotic even if you start to feel better. Keep all follow-up visits as told by your health care provider. This is important. Contact a health care provider if: You continue to have symptoms after treatment. You develop new symptoms. Your urine becomes cloudy or bloody. You have a fever. Get help right away if: You have severe flank or abdominal pain. You cannot drink fluids without vomiting. Summary Hydronephrosis is the swelling of one or both kidneys due to a blockage that stops urine from flowing out of the body. Hydronephrosis can lead to kidney failure and may become life threatening if not treated promptly. The goal of treatment is to treat the cause of the blockage. It may include insertion of stent into a blocked ureter, a procedure to treat kidney stones, and antibiotic medicines. Follow your health care provider's instructions for taking care of yourself at home, including instructions about drinking fluids, taking medicines, and limiting activities. This information is not intended to replace advice given to you by your health care provider. Make sure you discuss any questions you have with your health care provider. Document Released: 05/25/2008 Document Revised: 08/09/2018 Document Reviewed: 08/09/2018 [employer] Patient Education 2020 [employer]. Follow Up Care 08/30/2022 10:23:47 With:TERESA BENDER, Rakan Cummings, URL Address: [facility] [address], [place] [address]- When: Unknown [facility] Evaluation + Plan note Note Date & Type Note Facility Evaluation + Plan note No data available for this section [facility] Evaluation + Plan note Note Date & Type Note Facility Evaluation + Plan note Future Appointments Appointment Date:06/21/2023 10:45:00 AM Scheduled Provider:Rakan MCGEE MD Location:[facility] Appointment Type:URO Office Visit [facility] Evaluation + Plan note Note Date & Type Note Facility Evaluation + Plan note Future Appointments Appointment Date:06/26/2024 10:15:00 AM Scheduled Provider:Rakan MCGEE MD Location:[facility] Appointment Type:URO Office Visit [facility] Hospital Discharge instructions Note Date & Type Note Facility Hospital Discharge instructions No data available for this section [facility] Progress note Note Date & Type Note Facility Progress note No data available for this section [facility] Summary Purpose Family History No Family History Records FoundNo Family History Records FoundNo Family History Records Found No data available for this section No data available for this section No Family History Records Found Advance Directives No Advanced Directives Records FoundNo Advanced Directives Records FoundNo Advanced Directives Records FoundNo Advanced Directives Records Found Additional Source Comments INFORMATION SOURCE (unrecogn ized section and content) DATE CREATED AUTHOR 02/05/[address] [facility] DATE CREATED AUTHOR AUTHOR'S ORGANIZ ATION 04/19/2022 [facility] DATE CREATED AUTHOR AUTHOR'S ORGANIZ ATION 12/18/2022 [facility] DATE CREATED AUTHOR AUTHOR'S ORGANIZ ATION 06/29/2024 [facility] Patient Care team informatio n (unrecognized section and content) Personnel Name: Trisha Osorio MD Address: Address: [address] [place] [address] Personnel Name: Trisha Osorio MD Address: Address: [address] [place] [address] Personnel Name: Trisha Osorio MD Address: Address: [address] [place] [address] Personnel Name: Trisha Osorio MD Address: Address: [address] [place] [address] Personnel Name: Trisha Osorio MD Address: Address: [address] [place] [address] FOR RECORDS PERTAINING TO PATIENTS WHO ARE OR HAVE BEEN ENROLLED IN A CHEMICAL DEPENDENCY/SUBSTANCEABUSE PROGRAM, SOME INFORMATION MAY BE OMITTED. This clinical summary was aggregated from multiple sources. Caution should be exercised in using it in the provision of clinical care. This summary normalizes information from multiple sources, and as a consequence, information in this document may materially change the coding, format and clinical context of patient data. In addition, data may be omitted in some cases. CLINICAL DECISIONS SHOULD BE BASED ON THE PRIMARY CLINICAL RECORDS. [facility]. provides no warranty or guarantee of the accuracy or completeness of information in this document.
== END 2024-06-29 10:19 | disposition home or self-care (01) ==
LOC: US 10:19
PROVIDERS: PCP Family Medicine; Visit Provider Urology
DX: N20.0 Calculus of kidney (principal); Q62.11 Congenital occlusion of ureteropelvic junction; N13.30 Unspecified hydronephrosis; N39.0 Urinary tract infection, site not specified
CPT/HCPCS: 74018; 76770

== ENCOUNTER 2024-07-21 08:36 | Outpatient (OUT) | payer MEDICARE, SELFPAY ==
--- NOTE | 2024-07-21 08:39 | CT_ITS ---
[address] [address] Patient Name: PANCHITO MALIK MRN: [id number] date: 1935 Sex: F Assigned Patient Location: LAB Current Patient Location: Accession/Order Number: [id number] Exam Date: 07/21/2024 10:00 Report Date: 07/22/2024 05:33 At the request of: FELICITAS MOORE Procedure: CT abdomen pelvis wo/w con EXAMINATION: CT abdomen pelvis wo/w con HISTORY: Renal Mass, Kidney Stones COMPARISON: Ultrasound kidneys and bladder 06/29/2024, CT abdomen pelvis 05/19/2022 TECHNIQUE: Axial, Coronal, and Sagittal images were obtained without and/or with IV contrast as indicated by examination type. Dose reduction techniques were achieved by using automated exposure control and/or adjustment of mA and/or kV according to patient size and/or use of iterative reconstruction technique. FINDINGS: LUNG BASES: Cardiomegaly. Multiple large dense calcification is within left perihilar region. Partial collapse of left lower lobe basilar segments likely due to the large hiatal hernia. LIVER: No enlargement, atrophy, suspicious density, or significant focal lesion. BILIARY: Cholecystectomy. PANCREAS: Stable tiny pseudocyst. Moderate atrophy. SPLEEN: No enlargement or focal lesion. ADRENALS: No mass or enlargement. KIDNEYS: Developmental variant extrarenal pelvis bilaterally; no hydronephrosis. Developmental prominence of mid body of left kidney (dromedary hump). No mass, obstruction, or calcification. Vascular calcifications are present. BOWEL/MESENTERY: Large hiatal hernia with majority of stomach above diaphragm. Diverticulosis throughout the length of the colon with marked diverticulosis of the descending and sigmoid colon; no acute inflammatory changes. No bowel obstruction or appreciable mass. AORTA/VASCULAR: Moderate atherosclerotic disease. No aneurysm or dissection. RETROPERITONEUM: No mass or adenopathy. LYMPH NODES: No adenopathy. URINARY BLADDER: Area of left lateral wall thickening, 4.0 x 2.5 cm in diameter by 0.8 cm in thickness. PELVIC ORGANS: Hysterectomy. ABDOMINAL WALL: Tiny fat filled periumbilical hernia without strangulation. BONES: Marked scoliotic curvature of spine and associated degenerative changes. No appreciable acute abnormality. OTHER: Negative. CT/CT abdomen pelvis wo/w con IMPRESSION: 1. No renal mass. Developmental variant of left kidney. No suspicious findings. 2. Calcifications within the kidneys favor vascular atherosclerotic disease rather than urinary tract calculi. 3. Large hiatal hernia with majority of the stomach above the diaphragm likely causing the left basilar atelectasis/consolidation. 4. Chronic granulomatous disease with multiple large calcifications adjacent left hilum. 5. Cardiomegaly. 6. Marked diverticulosis of the colon without acute inflammatory changes. 7. Smooth but focal area of wall thickening of the urinary bladder (left lateral wall); nonspecific. Consider ultrasound evaluation of the bladder. Electronically authenticated by: SHIRLEY OGMEZ Date: 07/22/2024 05:33
[2024-07-21 08:56] LABS: Estimated GFR (African America 38 (>=60 mL/min/1.73m^2); Estimated GFR (Non-African Ame 31 (>=60 mL/min/1.73m^2)
== END 2024-07-21 08:37 | disposition home or self-care (01) ==
LOC: LAB 08:36
PROVIDERS: PCP Family Medicine; Visit Provider Urology
DX: N20.0 Calculus of kidney (principal); N28.89 Other specified disorders of kidney and ureter; K44.9 Diaphragmatic hernia without obstruction or gangrene; I51.7 Cardiomegaly; K57.90 Diverticulosis of intestine, part unspecified, without perforation or abscess without bleeding
CPT/HCPCS: 36415; 74178; 82565; Q9966